=== PATIENT | male | born 1990 | race Caucasian/White ===

== ENCOUNTER → 2020-07-20 | Outpatient (CLI) | payer OTHER ==
[2020-07-20 10:51] LABS: HEMATOCRIT 41.7 % (42.0-52.0); HEMOGLOBIN 13.6 g/dl (13.5-17.5); MEAN CORPUSCULAR HEMOGLOBIN 30.8 pg (27.0-33.0); MEAN CORPUSCULAR HGB CONC 32.6 g/dl (32.0-36.5); MEAN CORPUSCULAR VOLUME 94.6 fl (80.0-96.0); PLATELET COUNT, AUTOMATED 347 10^3/uL (150-450); RED BLOOD COUNT 4.41 10^6/uL (4.30-6.10); WHITE BLOOD COUNT 5.1 10^3/uL (4.0-10.0)
[2020-07-20 11:19] LABS: ALBUMIN 4.2 GM/DL (3.2-5.2); ALT/SGPT 41 U/L (12-78); BILIRUBIN,TOTAL 0.4 MG/DL (0.2-1.0); BLOOD UREA NITROGEN 27 MG/DL (7-18); CALCIUM LEVEL 9.6 MG/DL (8.5-10.1); CARBON DIOXIDE LEVEL 31 MEQ/L (21-32); CHLORIDE LEVEL 99 MEQ/L (98-107); CREATININE FOR GFR 1.23 MG/DL (0.70-1.30); GLOMERULAR FILTRATION RATE > 60.0 (>60); GLUCOSE, FASTING 96 MG/DL (70-100); SODIUM LEVEL 136 MEQ/L (136-145); TOTAL PROTEIN 7.4 GM/DL (6.4-8.2)
[2020-07-20 11:34] LABS: HEPATITIS B SURFACE ANTIGEN NEGATIVE (NEGATIVE)
[2020-07-20 12:03] LABS: HIV 1&2 SCREEN CENTAUR NEGATIVE (NEGATIVE)
[2020-07-20 12:07] LABS: HEPATITIS C VIRUS ABY INDEX > 11.0 INDEX (<0.8)
[2020-07-20 14:32] LABS: CHLAMYDIA DNA AMPLIFICATION NEGATIVE (NEGATIVE); GC DNA AMPLIFICATION NEGATIVE (NEGATIVE)
--- NOTE | 2020-07-23 00:07 | ECGEPIP ---
[facility] Test Date: 2020-07-20 Pat Name: REYNA GOLDSTEIN Department: Room: - Gender: Male [employer]ating [employer]ic: rf : 1990 Requested By: Nimesh Burleson Order Number: [id number] Reading MD: Mart Egan Measurements Intervals [place] Rate: 94 P: 67 WV: 152 QRS: 63 QRSD: 74 T: 42 QT: 338 QTc: 422 Interpretive Statements Normal sinus rhythm No prior tracing in the system Electronically Signed on 07-23-2020 0:07:41 EST by Mart Egan
== END ==
LOC: M LAB 09:39
PROVIDERS: ATTEND Family Medicine
DX: F11.20 Opioid dependence, uncomplicated (principal)

== ENCOUNTER → 2020-07-20 | Outpatient (CLI) | payer OTHER ==
[2020-07-20 11:16] LABS: APPEARANCE, URINE CLEAR (CLEAR); BACTERIA, URINE AUTO NEGATIVE (NEGATIVE); BILIRUBIN, URINE AUTO NEGATIVE (NEGATIVE); BLOOD, URINE BLOOD NEGATIVE (NEGATIVE); COLOR, URINE STRAW (YELLOW); GLUCOSE, URINE (UA) AUTO NEGATIVE (NEGATIVE); KETONE, URINE AUTO NEGATIVE (NEGATIVE); LEUKOCYTE ESTERASE, URINE AUTO NEGATIVE (NEGATIVE); MUCUS, URINE SMALL (NEGATIVE); NITRITE, URINE AUTO NEGATIVE (NEGATIVE); PROTEIN, URINE AUTO NEGATIVE (NEGATIVE); RBC, URINE AUTO 0 /HPF (0-3); SPECIFIC GRAVITY URINE AUTO 1.006 (1.002-1.035); SQUAMOUS EPITHELIAL CELL UR AU 0 /HPF (0-6); UROBILINOGEN, URINE AUTO 0.2 mg/dL (0.0-2.0); WBC, URINE AUTO 1 /HPF (0-3)
[2020-07-20 11:21] LABS: BASO % 0.4 % (0.0-1.0); EOS # 0.3 10^3/uL (0.0-0.5); EOS % 6.7 % (0.0-3.0); HEMATOCRIT 42.5 % (42.0-52.0); HEMOGLOBIN 13.9 g/dl (13.5-17.5); LYMPH # 1.7 10^3/uL (1.5-5.0); LYMPH % 33.9 % (24.0-44.0); MEAN CORPUSCULAR HEMOGLOBIN 30.9 pg (27.0-33.0); MEAN CORPUSCULAR HGB CONC 32.7 g/dl (32.0-36.5); MEAN CORPUSCULAR VOLUME 94.4 fl (80.0-96.0); MONO # 0.3 10^3/uL (0.0-0.8); MONO % 6.1 % (2.0-8.0); NEUTROPHILS # 2.6 10^3/uL (1.5-8.5); NEUTROPHILS % 52.7 % (36.0-66.0); PLATELET COUNT, AUTOMATED 356 10^3/uL (150-450); WHITE BLOOD COUNT 4.9 10^3/uL (4.0-10.0)
[2020-07-20 11:40] LABS: ALBUMIN 4.2 GM/DL (3.2-5.2); ALT/SGPT 42 U/L (12-78); BILIRUBIN,TOTAL 0.3 MG/DL (0.2-1.0); BLOOD UREA NITROGEN 28 MG/DL (7-18); CALCIUM LEVEL 9.4 MG/DL (8.5-10.1); CARBON DIOXIDE LEVEL 32 MEQ/L (21-32); CHLORIDE LEVEL 99 MEQ/L (98-107); GLOMERULAR FILTRATION RATE > 60.0 (>60); GLUCOSE, FASTING 94 MG/DL (70-100); SODIUM LEVEL 135 MEQ/L (136-145); TOTAL PROTEIN 7.5 GM/DL (6.4-8.2)
[2020-07-20 11:49] LABS: HEPATITIS B SURFACE ANTIBODY POSITIVE (POSITIVE)
[2020-07-20 11:59] LABS: HEPATITIS B SURFACE ANTIGEN NEGATIVE (NEGATIVE)
[2020-07-20 12:27] LABS: HEPATITIS B CORE ANTIBODY IGM NEGATIVE (NEGATIVE)
[2020-07-20 12:29] LABS: HEPATITIS A ANTIBODY IGM NEGATIVE (NEGATIVE)
[2020-07-20 12:56] LABS: HEPATITIS C VIRUS ABY INDEX > 11.0 INDEX (<0.8)
== END ==
LOC: M LAB 09:48
PROVIDERS: ATTEND Physician Assistant Medical
DX: Z02.2 Encounter for examination for admission to residential institution (principal)

== ENCOUNTER → 2020-12-24 | Outpatient (CLI) | payer OTHER ==
--- NOTE | 2020-12-24 15:23 | REP ---
INDICATION: Palpable lump COMPARISON: None TECHNIQUE: Ultrasonography of the retroareolar region of both right and left breast were obtained. Left breast was performed for comparison. FINDINGS: Hypoechoic tissue is seen in the retroareolar region of both right and left breast. Since the right breast was ordered more images were obtained. IMPRESSION: Likely bilateral gynecomastia right greater than left, however, mammography is recommended bilaterally. <Electronically signed by Austin Guerrero > 12/24/20 [id number]
== END ==
LOC: M RAD 11:20
PROVIDERS: ATTEND Surgery
DX: N62 Hypertrophy of breast (principal)

== ENCOUNTER 2021-03-24 06:43 | Inpatient (IN) | payer OTHER ==
[~2021-03-24] VITALS: Ht 182.9 cm; Wt 77.0 kg
--- OUTSIDE RECORDS SUMMARY | 2021-03-24 06:47 | CCD | Continuity of Care Document ---
Author Author Jj NUGENT M.D. Organization Unknown Address [address] [place] [address] Phone [phone] Problems Description No Information Available Social History Type Date Description Comments Sex Unknown Allergies, Adverse Reactions, Alerts Description No Known Drug Allergies Medications Active Medications SIG Qnty Indications Ordering Provide r Date Bupropion Hydrochloride ER (XL) 450mg Tablets ER 24HR 1 by mouth every day 30tabs Diego Nugent M.D. 10/18/2020 Mirtazapine 15mg Tablets 1 tab by mouth every night 30tabs Diego Nugent M.D. 10/18/2020 History Medications No Active Medications Unknown - 10/18/2020 Immunizations Description No Information Available Vital Signs Date Vital Result Comment 10/15/2020 9:02am BP Systolic 123 mmHg BP Diastolic 89 mmHg Heart Rate 98 /min Respiratory Rate 18 /min Body Temperature 97.6 F Weight 153.00 lb 03/25/2020 8:47am BP Systolic 127 mmHg BP Diastolic 70 mmHg Heart Rate 101 /min Respiratory Rate 18 /min Body Temperature 97.6 F Weight 138.00 lb Results Description No Information Available Procedures Description No Information Available Medical Devices Description No Information Available Encounters Description No Information Available Assessments Description No Information Available Plan of Treatment No Information Available Functional Status Description No Information Available Mental Status Description No Information Available Referrals Description No Information Available
--- OUTSIDE RECORDS SUMMARY | 2021-03-24 06:47 | CCD ---
Author Author [facility] Organization [facility] Address Unknown Phone Unavailable Care Team Providers Care Resident Manager Name Role Phone Pranav VILLALBA MD Unavailable Unavailable MARAVEGIAS, Pranav JENSEN MD Unavailable Unavailable MARAVEGIAS, Pranav JENSEN MD Unavailable Unavailable MARAVEGIAArlette, Pranav JENSEN MD Unavailable Unavailable MARAVEGIAS, Pranav JENSEN MD Unavailable Unavailable MARAVEGIAS, Pranav JENSEN MD Unavailable Unavailable MARAVEGIAS, Pranav JENSEN MD Unavailable Unavailable MARAVEGIAPranav Chong MD Unavailable Unavailable MARAVEGIAPranav Chong MD Unavailable Unavailable MARAVEGIASPranav MD Unavailable Unavailable MARAVEGIASPranav MD Unavailable Unavailable MARAVEGIASPranav MD Unavailable Unavailable MARAVEGIAPranav Chong MD Unavailable Unavailable MARAVEGIASPranav MD Unavailable Unavailable Shantal Pyle Unavailable EJANIE IV, L SVETLANA FOIL SPINNER Unavailable Unavailable JEANIE IV, L SVETLANA FOIL SPINNER Unavailable Unavailable JEANIE IV, L SVETLANA FOIL SPINNER Unavailable Unavailable JEANIE IV, L SVETLANA FOIL SPINNER Unavailable Unavailable JEANIE IV, L SVETLANA FOIL SPINNER Unavailable Unavailable JEANIE IV, L SVETLANA FOIL SPINNER Unavailable Unavailable JEANIE IV, L SVETLANA FOIL SPINNER Unavailable Unavailable JEANIE IV, L SVETLANA FOIL SPINNER Unavailable Unavailable JEANIE IV, L SVETLANA FOIL SPINNER Unavailable Unavailable JEANIE IV, L SVETLANA FOIL SPINNER Unavailable Unavailable JEANIE IV, L SVETLANA FOIL SPINNER Unavailable Unavailable JEANIE IV, L SVETLANA FOIL SPINNER Unavailable Unavailable JEANIE IV, L SVETLANA FOIL SPINNER Unavailable Unavailable JEANIE IV, L SVETLANA FOIL SPINNER Unavailable Unavailable JEANIE IV, L SVETLANA FOIL SPINNER Unavailable Unavailable JEANIE IV, L SVETLANA FOIL SPINNER Unavailable Unavailable JEANIE IV, L SVETLANA FOIL SPINNER Unavailable Unavailable JEAINE IV, L SVETLANA FOIL SPINNER Unavailable Unavailable JEANIE IV, L SVETLANA FOIL SPINNER Unavailable Unavailable JEANIE IV, L SVETLANA FOIL SPINNER Unavailable Unavailable JEANIE IV, L SVETLANA FOIL SPINNER Unavailable Unavailable JEANIE IV, L SVETLANA FOIL SPINNER Unavailable Unavailable JEANIE IV, L SVETLANA FOIL SPINNER Unavailable Unavailable JEANIE IV, L SVETLANA FOIL SPINNER Unavailable Unavailable JEANIE IV, L SVETLANA FOIL SPINNER Unavailable Unavailable JEANIE IV, L SVETLANA FOIL SPINNER Unavailable Unavailable JEANIE IV, L SVETLANA FOIL SPINNER Unavailable Unavailable JEANIE IV, L SVETLANA FOIL SPINNER Unavailable Unavailable JEANIE IV, L SVETLANA FOIL SPINNER Unavailable Unavailable JEANIE IV, L SVETLANA FOIL SPINNER Unavailable Unavailable JEANIE IV, L SVETLANA FOIL SPINNER Unavailable Unavailable JEANIE IV, L SVETLANA FOIL SPINNER Unavailable Unavailable JEANIE IV, L SVETLANA FOIL SPINNER Unavailable Unavailable JEANIE IV, L SVETLANA FOIL SPINNER Unavailable Unavailable JEANIE IV, L SVETLANA FOIL SPINNER Unavailable Unavailable JEANIE IV, L SVETLANA FOIL SPINNER Unavailable Unavailable JEANIE IV, L SVETLANA FOIL SPINNER Unavailable Unavailable JEANIE IV, L SVETLANA FOIL SPINNER Unavailable Unavailable Luisa GONZALEZ M.D. Unavailable Unavailable Luisa GONZALEZ.Arelis Unavailable Unavailable TONTARSKI, G FRANCO PA Unavailable Unavailable TONTARSKI, G FRANCO PA Unavailable Unavailable TONTARSKI, G FRANCO PA Unavailable Unavailable TONTARSKI, G FRANCO PA Unavailable Unavailable TONTARSKI, G FRANCO PA Unavailable Unavailable TONTARSKI, G FRANCO PA Unavailable Unavailable TONTARSKI, G FRANCO PA Unavailable Unavailable TONTARSKI, G FRANCO PA Unavailable Unavailable TONTARSKI, G FRANCO PA Unavailable Unavailable TONTARSKI, G FRANCO PA Unavailable Unavailable TONTARSKI, G FRANCO PA Unavailable Unavailable TONTARSKI, G FRANCO PA Unavailable Unavailable TONTARSKI, G FRANCO PA Unavailable Unavailable TONTARSKI, G FRANCO PA Unavailable Unavailable TONTARSKI, G FRANCO PA Unavailable Unavailable TONTARSKI, G FRANCO PA Unavailable Unavailable TONTARSKI, G FRANCO PA Unavailable Unavailable TONTARSKI, G FRANCO PA Unavailable Unavailable TONTARSKI, G FRANCO PA Unavailable Unavailable TONTARSKI, G FRANCO PA Unavailable Unavailable TONTARSKI, G FRANCO PA Unavailable Unavailable TONTARSKI, G FRANCO PA Unavailable Unavailable TONTARSKI, G FRANCO PA Unavailable Unavailable TONTARSKI, G FRANCO PA Unavailable Unavailable TONTARSKI, G FRANCO PA Unavailable Unavailable TONTARSKI, G FRANCO PA Unavailable Unavailable TONTARSKI, G FRANCO PA Unavailable Unavailable TONTARSKI, G FRANCO PA Unavailable Unavailable TONTARSKI, G FRANCO PA Unavailable Unavailable TONTARSKI, G FRANCO PA Unavailable Unavailable TONTARSKI, G FRANCO PA Unavailable Unavailable TONTARSKI, G FRANCO PA Unavailable Unavailable TONTARSKI, G FRANCO PA Unavailable Unavailable TONTARSKI, G FRANCO PA Unavailable Unavailable TONTARSKI, G FRANCO PA Unavailable Unavailable TONTARSKI, G FRANCO PA Unavailable Unavailable TONTARSKI, G FRANCO PA Unavailable Unavailable TONTARSKI, G FRANCO PA Unavailable Unavailable TONTARSKI, G FRANCO PA Unavailable Unavailable TONTARSKI, G FRANCO PA Unavailable Unavailable TONTARSKI, G FRANCO PA Unavailable Unavailable TONTARSKI, G FRANCO PA Unavailable Unavailable TONTARSKI, G FRANCO PA Unavailable Unavailable TONTARSKI, G FRANCO PA Unavailable Unavailable TONTARSKI, G FRANCO PA Unavailable Unavailable TONTARSKI, G FRANCO PA Unavailable Unavailable TONTARSKI, G FRANCO PA Unavailable Unavailable Stanford Chau SERVICE DEPARTMENT MANAGER Unavailable Unavailable Stanford Chau SERVICE DEPARTMENT MANAGER Unavailable Unavailable Re-disclosure Warning The records that you are about to access may contain information from federally-assisted alcohol or drug abuse programs. If such information is present, then the following federally mandated warning applies: This information has been disclosed to you from records protected by federal confidentiality rules (42 CFR part 2). The federal rules prohibit you from making any further disclosure of this information unless further disclosure is expressly permitted by the written consent of the person to whom it pertains or as otherwise permitted by 42 CFR part 2. A general authorization for the release of medical or other information is NOT sufficient for this purpose. The Federal rules restrict any use of the information to criminally investigate or prosecute any alcohol or drug abuse patient.The records that you are about to access may contain highly sensitive health information, the redisclosure of which is protected by Article 27-F of the [facility] Public Health law. If you continue you may have access to information: Regarding HIV / AIDS; Provided by facilities licensed or operated by the [facility] Office of Mental Health; or Provided by the [facility] Office for People With Developmental Disabilities. If such information is present, then the following [facility] mandated warning applies: This information has been disclosed to you from confidential records which are protected by state law. State law prohibits you from making any further disclosure of this information without the specific written consent of the person to whom it pertains, or as otherwise permitted by law. Any unauthorized further disclosure in violation of state law may result in a fine or intermediate sentence or both. A general authorization for the release of medical or other information is NOT sufficient authorization for further disc losure. Encounters Encounter Providers Location Date Indications Data Source(s ) Attender: Shantalpenelope Pyle 12/08/2020 12:00:00 AM E DT [facility] ([facility]) Extended Individual Psychotherapy - 45 min Attender: Valenteyen Pyle [facility] 12/07/2020 09:45:00 AM EDT - 12/07/2020 09:45:00 AM EDT [facility] ([facility]) [facility] 02:00:00 PM EST [facility] ([facility]) Emergency Attender: ERI GONZALEZ M.D.Attender: ERI CARVALHO M.D. ER-ER 06/19/2020 05:49:00 PM EST - 06/19/2020 07:01:00 PM [facility] Patient discharged. Outpatient Attender: Татьяна Chau [facility] 06/2019 09:00:00 AM EDT - 01/28/2020 09:01:00 AM EDT [facility] Patient discharged. Outpatient Attender: SVETLANA WARE IV ED-[facility] 2019 02:00:00 PM EDT - 01/26/2020 02:01:00 PM EDT [facility] Patient discharged. Emergency Attender: CAMILA VILLALBA MD ED-ED 0 01/26/2020 01:20:00 PM EDT - 01/26/2020 01:40:00 PM EDT WITHDRAWING FROM DRUGS [facility] WITHDRAWING FROM DRUGS Patient discharged. Medications Medication Brand Name Start Date Product Form Dose Route Admi nistrative Instructions Pharmacy Instructions Status Indications Reaction Description Data Source(s) No Active Medications 10/18/2020 12:00:00 AM EDT completed [facility] ([facility]) Mirtazapine 15 MG Oral Tablet Mirtazapine 10/18/2020 12:00:00 AM EDT ORAL active [facility] ([facility]) 24 HR Bupropion Hydrochloride 450 MG Extended Release Oral Tablet Bupropion Hydrochloride ER (XL) 10/18/2020 12:00:00 AM EDT ORAL a ctive [facility] ([facility]) Clindamycin 300 MG Oral Capsule Clindamycin HCL 05/25/2020 12:00:00 A M EST ORAL completed [facility] ([facility]) Ibuprofen 200 MG Oral Capsule Ibuprofen 05/17/2020 12:00:00 AM EST completed [facility] ([facility]) No Active Medications 04/15/2020 12:00:00 AM EST completed [facility] ([facility]) Cephalexin 500 MG Oral Capsule [Keflex] Keflex 03/30/2020 12:00:0 0 AM EST ORAL completed [facility] ([facility]) Mupirocin 0.02 MG/MG Topical Ointment Mupirocin 03/30/2020 12:00:00 AM EST completed [facility] ([facility]) 12-3 mg 02/02/2020 12:00:00 AM EDT film [address] PL[address] ONE FILM UNDER THE TONGUE EVERY DAY MAXIMUM DAILY DOSE = 1 PLACE ONE FILM UNDER THE TONGUE EVERY DA Y MAXIMUM DAILY DOSE = 1 SOLD: 02/03/2020 [facility] 12-3 mg 01/26/2020 12:00:00 AM EDT film 7 PLACE ONE FILM UNDER THE TONGUE EVERY DAY MAXIMUM DAILY DOSE = 1 PLACE ONE FILM UNDER THE TONGUE EVERY DA Y MAXIMUM DAILY DOSE = 1 SOLD: 01/26/2020 [facility] Insurance Providers Payer name Policy type / Coverage type Policy ID Covered alliance party ID Covered alliance party's relationship to aguilar Policy Aguilar Plan Information [employer] MEDICAID [id number] S [id number] LAVERN I [id number] Self [id number] LAVERN [id number] SP [id number] [place] MEDICAID [id number] S 7 [id number] LAVERN 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 F17.210 Nicotine dependence, cigarettes, uncompl icated NICOTINE DEPENDENCE, CIGARETTES, UNCOMPLICATED Diagnosis 01/28/2020 09:00:00 AM EDT [facility] F11.20 Opioid dependence, uncomplicated OPIOID DEPENDEN CE, UNCOMPLICATED Diagnosis 01/28/2020 09:00:00 AM EDT [facility] F11.23 Opioid dependence with withdrawal OPIOID DEPENDE NCE WITH WITHDRAWAL Diagnosis 01/26/2020 01:20:00 PM EDT [facility] F11.20 Opioid dependence, uncomplicated Opioid Use Disorder, Severe Condition 12/08/2020 12:00:00 AM EDT [facility] ([facility]) F31.9 Bipolar disorder, unspecified Unspecified [place] r and Related Disorder Condition 12/08/2020 12:00:00 AM EDT [facility] ([facility]) Surgeries/Procedures Procedure Description Date Indications Data Source(s) Extended Individual Psychotherapy - 45 min 12/08/2020 12:00:00 AM EDT - 12/08/2020 12:00:00 AM EDT [facility] ([facility]) Extended Individual Psychotherapy - 45 min 12:00:00 AM EDT [facility] ([facility]) EMERGENCY DEPARTMENT VISIT LOW/MODER SEVERITY EMERGENCY DEPT VISIT 01/26/2020 12:00:00 AM EDT [facility] Results ID Date Data Source [id number] 07/20/2020 10:17:00 AM EST [facility] ([facility]) Name Value Range Interpretation Code Description Data Brielle rce(s) Supporting Document(s) Laboratory test finding (navigational concept) 0.09 0 .00-0.21 Normal (applies to non-numeric results) [facility] ([facility]) Laboratory test finding (navigational concept) Laboratory test r esult Normal (applies to non-numeric results) [facility] ([facility]) F0 - No fibrosis Laboratory test finding (navigational concept) 0.16 0 .00-0.17 Normal (applies to non-numeric results) [facility] ([facility]) Laboratory test finding (navigational concept) Laboratory test r esult Normal (applies to non-numeric results) [facility] ([facility]) Laboratory test finding (navigational concept) 77 mg/dL 1 7-317 Normal (applies to non-numeric results) [facility] ([facility]) Laboratory test finding (navigational concept) 201 mg/dL 1 10-276 Normal (applies to non-numeric results) [facility] ([facility]) Laboratory test finding (navigational concept) 124 mg/dL 1 01-178 Normal (applies to non-numeric results) [facility] ([facility]) Laboratory test finding (navigational concept) 12 IU/L 0 -65 Normal (applies to non-numeric results) [facility] ([facility]) Laboratory test finding (navigational concept) 0.2 mg/dL 0 .0-1.2 Normal (applies to non-numeric results) [facility] ([facility]) Laboratory test finding (navigational concept) 38 IU/L 0 -55 Normal (applies to non-numeric results) [facility] ([facility] MD) Laboratory test finding (navigational concept) Laboratory test r esult Normal (applies to non-numeric results) [facility] ([facility] MD) . Quantitative results of 6 biochemical tests are analyzed using a computational algorithm to provide a quantitative surrogate marker (0.0-1.0) for liver fibrosis (METAVIR F0- F4) and for necroinflammatory activity (METAVIR A0-A3). Laboratory test finding (navigational concept) Laboratory test r esult Normal (applies to non-numeric results) [facility] (Tai Overton MD) <content>.</content>
<content><0.21 = Stage F0 - No fibrosis</content>
<content>0.21 - 0.27 = Stage F0 - F1</content>
<content>0.27 - 0.31 = Stage F1 - Portal fibrosis</content>
<content>0.31 - 0.48 = Stage F1 - F2</content>
<content>0.48 - 0.58 = Stage F2 - Bridging fibrosis with few septa</content>
<content>0.58 - 0.72 = Stage F3 - Bridging fibrosis with many septa</content>
<content>0.72 - 0.74 = Stage F3 - F4</content>
<content>>0.74 = Stage F4 - Cirrhosis</content>
<content></content> Laboratory test finding (navigational concept) Laboratory test r esult Normal (applies to non-numeric results) [facility] ([facility] MD) <content>The negative predictive value o f a Fibrotest score <0.31</content>
<content>(absence of clinically significant fibrosis) was 85% when</content>
<content>compared to liver biopsy in 1,270 HCV infected patients</content>
<content>with a 38% prevalence of significant liver fibrosis (F2, 3</content>
<content>or 4). The positive predictive value of a Fibro-test score</content>
<content>>0.48 (F2, 3, 4) was 61% in that same patient cohort. HCV</content>
<content>FibroSURE is not recommended in patients with Gilbert</content>
<content>Disease, acute hemolysis (e.g. HCV ribavirin therapy</content>
<content>mediated hemolysis) acute hepa-titis of the liver, extra-</content>
<content>hepatic cholestasis, transplant patients, and/or renal</content>
<content>insufficiency patients. Any of these clinical situations</content>
<content>may lead to inaccurate quantitative predictions of</content>
<content>fibrosis and necroinflammatory activity in the liver.</content>
<content></content> Laboratory test finding (navigational concept) Laboratory test r esult Normal (applies to non-numeric results) [facility] ([facility] MD) <content>.</content>
<content><0.17 = Grade A0 - No Activity</content>
<content>0.17 - 0.29 = Grade A0 - A1</content>
<content>0.29 - 0.36 = Grade A1 - Minimal activity</content>
<content>0.36 - 0.52 = Grade A1 - A2</content>
<content>0.52 - 0.60 = Grade A2 - Moderate activity</content>
<content>0.60 - 0.62 = Grade A2 - A3</content>
<content>>0.62 = Grade A3 - Severe activity</content>
<content></content> Laboratory test finding (navigational concept) Laboratory test r esult Normal (applies to non-numeric results) [facility] (Tai Overton MD) . This test was developed and its performance characteristics determined by [facility]. It has not been cleared or approved by the Food and Drug Administration. The FDA has determined that such clearance or approval is not necessary. . For questions regarding this report please contact customer service at . ID Date Data Source [id number] 07/20/2020 10:17:00 AM EST [facility] ([facility]) Name Value Range Interpretation Code Description Data Brielle rce(s) Supporting Document(s) Hepatitis A virus IgG Ab [Units/volume] in Serum Laboratory test result Normal (applies to non-numeric results) [facility] (Tai Overton MD ) Performed at: [facility] [id number] [place] Tutor: Syl Smith MD, Phone: [phone] Performed at: [address] [id number] [place] Tutor: Kerri Jean MD, Phone: [phone] ID Date Data Source [id number] 07/20/2020 10:17:00 AM EST [facility] ([facility]) Name Value Range Interpretation Code Description Data Brielle rce(s) Supporting Document(s) Laboratory test finding (navigational concept) 3.114 Normal (applies to non- numeric results) [facility] (Tai Overton MD) Result Units: log10 IU/mL Laboratory test finding (navigational concept) 1300 IU/ml Normal (applies to non-numeric results) [facility] (Tai Overton MD) Laboratory test finding (navigational concept) Laboratory test r esult Normal (applies to non-numeric results) [facility] (Tai Overton MD) . The quantitative range of this assay is 15 IU/mL to 100 million IU/mL. ID Date Data Source [id number] 07/20/2020 10:17:00 AM EST [facility] ([facility] Overton MD) Name Value Range Interpretation Code Description Data Brielle rce(s) Supporting Document(s) Laboratory test finding (navigational concept) Laboratory test r esult Normal (applies to non-numeric results) [facility] (Tai Overton MD) Although this sample had sufficient HCV RNA as determined by quantitative methods, we were unable to determine the genotype on repeated attempts. Laboratory test finding (navigational concept) Laboratory test r esult Normal (applies to non-numeric results) [facility] (Tai Overton MD) . This test was developed and its performance characteristics determined by [facility]. It has not been cleared or approved by the U.S. Food and Drug Administration. . The FDA has determined that such clearance or approval is not necessary. This test is used for clinical purposes. It should not be regarded as investigational or for research. ID Date Data Source [id number] 07/20/2020 10:17:00 AM EST [facility] ([facility] Overton MD) Name Value Range Interpretation Code Description Data Brielle rce(s) Supporting Document(s) Hepatitis B virus surface Ab [Presence] in Serum by Im [facility] Laboratory test result Normal (applies to non-numeric results) M [facility] (Tai Overton MD) ID Date Data Source [id number] 07/20/2020 10:17:00 AM EST [facility] ([facility] Overton MD) Name Value Range Interpretation Code Description Data Brielle rce(s) Supporting Document(s) Laboratory test finding (navigational concept) Laboratory test r esult Above high normal [facility] (Tai Overton MD) <content>This screening test for Hepatit is C Virus was above the 1.0</content>
<content>cutoff index value and will be sent to reference lab</content>
<content>[facility], [address] [place],</content>
<content>[place] [id number] for Hep C RNA GEENA testing to confirm or exclude</content>
<content>active Hepatitis C Virus infection. Screening test Positive</content>
<content>samples with high index values (>11.0) usually (95%) confirm</content>
<content>Positive, but <5 of every 100 samples with this result might</content>
<content>be a false positive and Hep C RNA GEENA testing will aid in</content>
<content>patient management.</content>
<content></content> Laboratory test finding (navigational concept) Laboratory test r esult Normal (applies to non-numeric results) [facility] (Tai Overton MD) Laboratory test finding (navigational concept) Laboratory test r esult Normal (applies to non-numeric results) [facility] (Tai Overton MD) Laboratory test finding (navigational concept) Laboratory test r esult Normal (applies to non-numeric results) [facility] (Tai Overton MD) ID Date Data Source [id number] 07/20/2020 10:17:00 AM EST [facility] ([facility]) Name Value Range Interpretation Code Description Data Brielle rce(s) Supporting Document(s) Laboratory test finding (navigational concept) 94 mg/dL 7 0-100 Normal (applies to non-numeric results) [facility] (Tai Overton MD) Laboratory test finding (navigational concept) 28 mg/dL 7-18 Above high normal [facility] (Tai Overton MD) Laboratory test finding (navigational concept) 1.20 mg/dL 0 .70-1.30 Normal (applies to non-numeric results) [facility] (Tai Overton MD) Laboratory test finding (navigational concept) Laboratory test r esult Normal (applies to non-numeric results) [facility] (Tai Overton MD) <content>Units are mL/min/1.73 m2</content>
<content></content>
<content>Chronic Kidney Disease Staging per NKF:</content>
<content></content>
<content>Stage I & II GFR >=60 Normal to Mildly Decreased</content>
<content>Stage III GFR 30- 59 Moderately Decreased</content>
<content>Stage IV GFR 15-29 Severely Decreased</content>
<content>Stage V GFR <15 Very Little GFR Left</content>
<content>ESRD GFR <15 on MILKING SYSTEM INSTALLER</content>
<content></content> Laboratory test finding (navigational concept) 99 meq/L 9 8-107 Normal (applies to non-numeric results) [facility] (Tai Overton MD) Laboratory test finding (navigational concept) 135 meq/L 1 36-145 Below low normal [facility] (Tai Overton MD) Laboratory test finding (navigational concept) 4.0 meq/L 3 .5-5.1 Normal (applies to non-numeric results) [facility] (Tai Overton MD) Laboratory test finding (navigational concept) 4 meq/L 8-16 Below low normal [facility] (Tai Overton MD) Laboratory test finding (navigational concept) 32 meq/L 2 1-32 Normal (applies to non-numeric results) [facility] (Tai Overton MD) Laboratory test finding (navigational concept) 9.4 mg/dL 8 .5-10.1 Normal (applies to non-numeric results) [facility] (Tai Overton MD) Laboratory test finding (navigational concept) 79 U/L 4 5-117 Normal (applies to non-numeric results) [facility] (Tai Overton MD) Laboratory test finding (navigational concept) 42 U/L 1 2-78 Normal (applies to non-numeric results) [facility] (Tai Overton MD) Laboratory test finding (navigational concept) 20 U/L 7 -37 Normal (applies to non-numeric results) [facility] (Tai Overton MD) Laboratory test finding (navigational concept) 7.5 GM/DL 6 .4-8.2 Normal (applies to non-numeric results) [facility] (Tai Overton MD) Laboratory test finding (navigational concept) 0.3 mg/dL 0 .2-1.0 Normal (applies to non-numeric results) [facility] (Tai Overton MD) Laboratory test finding (navigational concept) 1.3 Normal (applies to non- numeric results) TALATENT (Tai Overton MD) Laboratory test finding (navigational concept) 4.2 GM/DL 3 .2-5.2 Normal (applies to non-numeric results) MATA (Tai Overton MD) ID Date Data Source [id number] 07/20/2020 10:17:00 AM EST MEDCARLOS (Tai Overton MD) Name Value Range Interpretation Code Description Data Brielle rce(s) Supporting Document(s) Laboratory test finding (navigational concept) Laboratory test r esult Normal (applies to non-numeric results) MEDENT (Tai Overton MD) Laboratory test finding (navigational concept) Laboratory test r esult Normal (applies to non-numeric results) MEDENT (Tai Overton MD) Laboratory test finding (navigational concept) Laboratory test r esult Normal (applies to non-numeric results) MEDENT (Tai Overton MD) Laboratory test finding (navigational concept) 5.0 units 5 .0-9.0 Normal (applies to non-numeric results) TALATENT (Tai Overton MD) Laboratory test finding (navigational concept) 1.006 1 .002-1.035 Normal (applies to non-numeric results) MEDENT (Tai Overton MD) Laboratory test finding (navigational concept) Laboratory test r esult Normal (applies to non-numeric results) MEDENT (Tai Overton MD) Laboratory test finding (navigational concept) Laboratory test r esult Normal (applies to non-numeric results) MEDENT (Tai Overton MD) Laboratory test finding (navigational concept) Laboratory test r esult Normal (applies to non-numeric results) TALATENT (Tai Overton MD) Laboratory test finding (navigational concept) 0.2 mg/dL 0 .0-2.0 Normal (applies to non-numeric results) MEDENT (Tai Overton MD) Laboratory test finding (navigational concept) Laboratory test r esult Normal (applies to non-numeric results) MEDENT (Tai Overton MD) Laboratory test finding (navigational concept) 1 /HPF 0 -3 Normal (applies to non-numeric results) TALATENT (Tai Overton MD) Laboratory test finding (navigational concept) Laboratory test r esult Normal (applies to non-numeric results) TALATENT (Tai Overton MD) Laboratory test finding (navigational concept) Laboratory test r esult Normal (applies to non-numeric results) MEDENT (Tai Overton MD) Laboratory test finding (navigational concept) 0 /HPF 0 -6 Normal (applies to non-numeric results) MEDENT (Tai Overton MD) Laboratory test finding (navigational concept) Laboratory test r esult Normal (applies to non-numeric results) MEDENT (Tai Overton MD) Laboratory test finding (navigational concept) 0 /HPF 0 -3 Normal (applies to non-numeric results) MEDENT (Tai Overton MD) Laboratory test finding (navigational concept) 0 /LPF 0 -1 Normal (applies to non-numeric results) MEDENT (Tai Overton MD) Laboratory test finding (navigational concept) Laboratory test r esult Normal (applies to non-numeric results) MEDCARLOS (Tai Overton MD) ID Date Data Source [id number] 07/20/2020 10:17:00 AM EST MEDCARLOS (Tai Overton MD) Name Value Range Interpretation Code Description Data Brielle rce(s) Supporting Document(s) Laboratory test finding (navigational concept) 4.9 10 4 .0-10.0 Normal (applies to non-numeric results) MEDENT (Tai Overton MD) Laboratory test finding (navigational concept) 13.9 g/dL 1 3.5-17.5 Normal (applies to non-numeric results) MEDENT (Tai Overton MD) Laboratory test finding (navigational concept) 4.50 10 4 .30-6.10 Normal (applies to non-numeric results) MEDENT (Tai Overton MD) Laboratory test finding (navigational concept) 42.5 % 4 2.0-52.0 Normal (applies to non-numeric results) MEDENT (Tai Overton MD) Laboratory test finding (navigational concept) 94.4 fl 8 0.0-96.0 Normal (applies to non-numeric results) TALATENT (Tai Overton MD) Laboratory test finding (navigational concept) 30.9 pg 2 7.0-33.0 Normal (applies to non-numeric results) TALATENT (Tai Overton MD) Laboratory test finding (navigational concept) 32.7 g/dL 3 2.0-36.5 Normal (applies to non-numeric results) MEDENT (Tai Oevrton MD) Laboratory test finding (navigational concept) 356 10 1 50-450 Normal (applies to non-numeric results) MEDENT (Tai Overton MD) Laboratory test finding (navigational concept) 12.7 % 1 1.5-14.5 Normal (applies to non-numeric results) MEDENT (Tai Overton MD) Laboratory test finding (navigational concept) 33.9 % 2 4.0-44.0 Normal (applies to non-numeric results) MEDENT (Tai Overton MD) Laboratory test finding (navigational concept) 52.7 % 3 6.0-66.0 Normal (applies to non-numeric results) MEDENT (Tai Overton MD) Laboratory test finding (navigational concept) 0.4 % 0 .0-1.0 Normal (applies to non-numeric results) MEDENT (Tai Overton MD) Laboratory test finding (navigational concept) 6.1 % 2 .0-8.0 Normal (applies to non-numeric results) MEDENT (Tai Overton MD) Laboratory test finding (navigational concept) 6.7 % 0.0-3.0 Above high normal MEDENT (Tai Overton MD) Laboratory test finding (navigational concept) 0.0 % 0 -0 Normal (applies to non- numeric results) MEDENT (Tai Overton MD) Laboratory test finding (navigational concept) 0.2 % 0 -3.0 Normal (applies to non-numeric results) MEDENT (Tai Overton MD) Laboratory test finding (navigational concept) 2.6 10 1 .5-8.5 Normal (applies to non-numeric results) MEDENT (Tai Overton MD) Laboratory test finding (navigational concept) 0.3 10 0 .0-0.5 Normal (applies to non-numeric results) MEDENT (Tai Overton MD) Laboratory test finding (navigational concept) 0.3 10 0 .0-0.8 Normal (applies to non-numeric results) MEDENT (Tai Overton MD) Laboratory test finding (navigational concept) 1.7 10 1 .5-5.0 Normal (applies to non-numeric results) MEDENT (Tai Overton MD) Laboratory test finding (navigational concept) 0.0 10 0 .0-0.2 Normal (applies to non-numeric results) MEDENT (Tai Overton MD) ID Date Data Source [id number] 06/23/2020 12:54:00 PM EST [facility] WBCS IN MODERATE NUMBERSNO ORGANISMS SEE N Name Value Range Interpretation Code Description Data Brielle rce(s) Supporting Document(s) [facility] WBCS IN MODERATE NUMBERSNO ORGANISMS SEE N ID Date Data Source [id number] 06/19/2020 07:01:00 PM EST [facility] Physician DocumentationClBria pandya CenterName: Reyna HoonAge: 30 yrsSex: MaleDOB: 1990MRN: [id number] Date: 06/19/2020Time: 17:49Account#: [id number] MD:ED Physician Reji Gonzalez Summary:06/19/20 18:26Discharge OrderedLocation: Home Self Care mkProblem: an ongoing problem mkSymptoms: have improved mkCondition: Stable mkDiagnosis- Cutaneous abscess of left upper limb mkFollowup: mk- With: Private Physician- When: [facility]- Reason: Recheck today's complaints, Continuance of careFollowup: mk- With: Emergency Department- When: As needed- Reason: Worsening of condition, Change in ConditionDischarge Instructions:- Discharge Summary Sheet mk- ABSCESS, I and D mkForms:- Medication Reconciliation mk- Medication Reconciliation Form - 2nd Copy mkPrescriptions:- Clindamycin HCl 300 mg Oral Capsule- take 1 capsule by ORAL route every 6 hours for 10 days; 40 mkcapsule; Refills: 0, Product Selection PermittedDisposition:05/2408:15 Attestation: I was available for consultation throughout this vkpatient's ED visit.HPI:05/2317:17 This 30 yrs old White Male presents to ER via Private Vehicle with mkcomplaints of Abscess.18:17 The patient presents with an abscess of the left antecubital area. mkDescription: raised, swollen, tense. Onset: The symptoms/epis odebegan/occurred 2 week(s) ago, and became worse today. Possiblecause(s): IVDA. Associated signs and symptoms: Pertinent positives:erythema, swelling, Pertinent negatives: discharge, drainage, foreignbody sensation, fever, headache, nausea, shortness of breath,vomiting. Modifying factors: the symptoms are alleviated by nothing,the symptoms are aggravated by squeezing the lesion and expressingthe contents, touching. Severity of symptoms: At their worst thesymptoms were moderate. The patient has experienced similar episodesin the past. The patient has been recently seen by a physician:.Patient is has been [facility] to [facility]. He hascompleted a course of Keflex and Bactrim but he area has increased insize. He has had previous I & D's for abscess in the past. .Historical:- Allergies: Keflex;- Home Meds:1. Culturelle 10 billion cell oral cap four times a day2. Seroquel 50 mg Oral tab 2 times per day3. Abilify 5 mg oral tab 1 tab once daily4. Lasix 40 mg Oral tab 1 tab once d aily5. spironolactone 50 mg Oral tab 1 tab once daily6. subutex 24 mg daily- PMHx: Anxiety; Opioid addiction; Hepatitis C;- Immunization history: Flu vaccine is not up to date.- Family history: Reviewed and not pertinent, No immediate familymembers are acutely ill.- Social history: Smoking status: Patient uses tobacco products,current every day smoker. ETOH status Denies use of ETOH.- Advance Directives:: None.- Hospitalizations: : No recent hospitalization is reported.ROS:18:22 Constitutional: Alert, orientated, conversing appropriately. Eyes: mkNegative for blurriness, tearing, itching, and acute vison loss. ENT:Negatve for injury, pain and discharge Neck: Negative for injury,pain, and swelling, Cardiovascular: Negative for chest pain,palpitations, JVD, edema, murmur Respiratory: Negative for shortnessof breath, cough, sputum, wheezing, pleuritic chest pain, andhemoptysis. Abdomen/GI: Negative for abdominal pain, nausea,vomiting, diarrhea, and constipation, Back: Negative for injury andpain, : Negative for injury, bleeding, discharge, and swelling.Neuro: Negative for headache, weakness, numbness, tingling, tremors,and seizure. MS/extremity: Positive for erythema, pain, swelling,warmth, of the left antecubital area, Negative for decreased range ofmotion, tingling. Skin: Positive for abscess, erythema, swelling,Negative for abrasions, avulsion, burn, cellulitis, diaphoresis,discoloration, ecchymosis, hematoma, jaundice, laceration(s),lesions, pallor, puncture, rash, ulceration.Exam:18:23 Constitutional: This is a well developed, well nourished patient who mkis awake, alert, and in no acute distress. Head/Face: Normocephalic,atraumatic. Eyes: Pupils equal round and reactive to light,extra-ocular motions intact. Lids and lashes normal. Conjunctivaand sclera are non-icteric and not injected. Cornea within normallimits. Periorbital areas with no swelling, redness, or edema. ENT:Nares patent. No nasal discharge, no septal abnormalities noted.Tympanic membranes are normal and external auditory canals are clear.Oropharynx with no redness, swelling, or masses, exudates, orevidence of obstruction, uvula midline. Mucous membranes moist.Neck: Trachea midline, no thyromegaly or masses palpated, and nocervical lymphadenopathy. Supple, full range of motion withoutnuchal rigidity, or vertebral point tenderness. No Meningismus.Chest/axilla: Normal chest wall appearance and motion. Nontenderwith no deformity. No lesions are appreciated. Cardiovascular:Regular rate and rhythm with a normal S1 adn S2. No gallops, murmurs,or rubs. Normal PMI, no JVD. No pulse deficits. Respiratory: Lungshave equal breath sounds bilaterally. No rales, rhonchi or wheezesnoted. No increased work of breathing, no retractions or nasalflaring. Abdomen/GI: Soft, non-tender, with normal bowel sounds. Nodistension or tympany. No guarding or rebound. No evidence oftenderness throughout. Back: No spinal tenderness. Nocostovertebral tenderness. Full range of motion.18:23 Skin: abscess, that is moderate sized, of the left antecubital area,with fluctuance, that is mild.Vital Signs:17:53 BP 122 / 80; Pulse 110; Resp 17; Temp 97.9(TE); Pulse Ox 96% on R/A; zsPain 0/10;18:49 ef118:49 DEFFERED kk6Btltknhyys:18:23 I & D: Incision and drainage was performed for an abscess of the left mkleft antecubital area Prepped with Betadine, Anesthetized with ml's2% Lidocaine with epinephrine. 3 ml's 2% Lidocaine with epinephrine.Incised with #10 blade. Drained moderate amount purulent fluid.Cultures obtained. Abscess cavity explored. the patient tolerated theprocedure well.MDM:17:57 Patient medically screened. mk18:24 Data reviewed: vital signs, nurses notes. mk01/2318:15 Order name: Culture mkDispensed Medications:18:32 CANCELLED (Physician Discretion): cefTRIAXone 1 grams IM once mk18:43 Drug: Clindamycin 300 mg [clindamycin HCl 300 mg capsule (1 caps)] [id number]: PO;18:52 Follow up: Response: Medication administered at discharge. qc8Lsbfzriptk:Dispatcher [employer] Saige Grullon FNP-C FNP-CmkShantie, Zachary, RN RN zsFishel, Erica, RN RN [id number] aiken MD MD vkCorrections: (The following items were deleted from the chart)18:15 17:50 Allergies: No known Allergies; zs ef118:32 18:14 cefTRIAXone 1 grams IM once ordered. [facility] Name Value Range Interpretation Code Description Data Brielle rce(s) Supporting Document(s) ID Date Data Source [id number] 06/19/2020 07:01:00 PM EST [facility]Cl[facility] Katy terName: Reyna HoonAge: 30 yrsSex: MaleDOB: 1990MRN: [id number] Date: 06/19/2020Time: 17:49Account#: [id number] MD:Diagnosis: Cutaneous abscess of left upper limbPresentation:05/2316:49 Presenting complaint: Patient states: Abscess to left arm that has zsbeen present for few months but worse over the last week. CoronavirusScreening: Have you traveled internationally or had contact withsomeone that has traveled and has been ill in the past 3 weeks? noHave you traveled to a location with widespread or ongoing COVID-19community spread or outside of [facility]? no Flu-like symptomsreported in the last 14 days: no. Have you had close contact withconfirmed or suspected COVID-19 case? no. Communicable DiseaseScreen: Negative for fever>/= 100 degrees Fahrenheit. Communicabledisease screen is negative. (-) rash or unusual skin lesion (-)travel/contact with traveler (-) respiratory symptoms.17:49 Acuity: Triage 3 zs17:49 Method Of Arrival: Private Vehicle zs17:50 Acuity Assignment: Triage 3 zsTriage Assessment:17:52 General: Appears in no apparent distress, Behavior is appropriate for zsage, cooperative. Sepsis Screening: (1)Signs/symptoms infectionSepsis is not suspected. Pain: Complains of pain in left antecubitalarea Pain currently is 6 out of 10 on a pain scale. Quality of painis described as aching. PSS-3 Now I'm going to ask you some questionsthat we ask everyone treated here, no matter what problem they arehere for. It is part of the hospital's policy and it helps us to makesure we are not missing anything important. Over the past 2 weeks,have you felt down, depressed, or hopeless? No. Over the past 2weeks, have had thoughts of killing yourself? No. In your lifetime,have you ever attempted to kill yourself? No. Derm: No deficitsnoted. Skin is intact, is healthy with good turgor. Neuro: Nodeficits noted. Respiratory: Airway is patent Respiratory effort iseven, unlabored, Respiratory pattern is regular.Historical:- Allergies: Keflex;- Home Meds:1. Culturelle 10 billion cell oral cap four times a day2. Seroquel 50 mg Oral tab 2 times per day3. Abilify 5 mg oral tab 1 tab once daily4. Lasix 40 mg Oral tab 1 tab once daily5. spironolactone 50 mg Oral tab 1 tab once daily6. subutex 24 mg daily- PMHx: Anxiety; Opioid addiction; Hepatitis C;- Immunization history: Flu vaccine is not up to date.- Family history: Reviewed and not pertinent, No immediate familymembers are acutely ill.- Social history: Smoking status: Patient uses tobacco products,current every day smoker. ETOH status Denies use of ETOH.- Advance Directives:: None.- Hospitalizations: : No recent hospitalization is reported.Screenin:11 Abuse screen: Denies threats or abuse. Denies injuries from another. [id number] screening: No deficits noted. Offer of HIV testing:patient was previously offered screening. Fall Risk None identified.Assessment:18:11 Pain: Complains of pain in left antecubital area. Derm: Abscess [id number] on left antecubital area is golf ball sized, is red, israised. General: Appears in no apparent distress, Behavior iscooperative. Neuro: Level of Consciousness is awake, alert.Respiratory: No deficits noted.Vital Signs:17:53 BP 122 / 80; Pulse 110; Resp 17; Temp 97.9(TE); Pulse Ox 96% on R/A; zsPain 0/10;18:49 ef118:49 DEFFERED ef1ED Course:17:49 Patient arrived in ED. zs17:50 Triage completed. zs17:56 An Shetty, BLANQUITA is Primary Nurse. ef117:57 Saige Camp FNP-C [facility]. mk17:57 Eri Gonzalez MD is Attending Physician. mk18:11 Patient has correct armband on for positive identification. Bed in ef1low position. Call light in reach. Verbal reassurance given. Pillowgiven.18:49 Assist provider with I & D: Performed by Saige VALLE. [id number] Medications:18:32 CANCELLED (Physician Discretion): cefTRIAXone 1 grams IM once mk18:43 Drug: Clindamycin 300 mg [clindamycin HCl 300 mg capsule (1 caps)] [id number]: PO;18:52 Follow up: Response: Medication administered at discharge. yx8Hmamngy:18:26 Discharge ordered by . mk18:49 Disposition: Discharged to home ambulatory. ef118:49 Condition: stable, Provider notified of abnormal vital signs.18:49 Discharge instructions given to patient, Instructed on dischargeinstructions, follow up and referral plans. Demonstratedunderstanding of instructions, medications, Prescriptions given X 1.18:49 Discharge Assessment: Patient verbalized understanding of dispositioninstructions. Patient has no functional deficits.19:01 Patient left the ED. [id number]:Saige Camp FNP-C FNP-CmkShantie, Zachary, RN RN zsFishel, Erica, RN RN [id number]: (The following items were deleted from the chart)18:15 17:50 Allergies: No known Allergies; zs ef1 Name Value Range Interpretation Code Description Data Brielle rce(s) Supporting Document(s) Procedure Social History Code Duration Value Status Description Data Source(s ) Smoking 12/08/2020 12:00:00 AM EDT Unknown if ever smoked comp leted Unknown if ever smoked [facility] ([facility]) Vital Signs ID Date Data Source UNK Name Value Range Interpretation Code Description Data Source(s) Systolic blood pressure 123 mm[Hg] 123 mm[Hg] M EDENT ([facility]) Respiratory rate 18 /min 18 /min MEDENT ( [facility]) Body weight 153.00 [lb_av] 153.00 [lb_av] MEDEN T ([facility]) Diastolic blood pressure 89 mm[Hg] 89 mm[Hg] MEDENT ([facility]) Heart rate 98 /min 98 /min MEDENT ([facility]) Body temperature 97.6 [degF] 97.6 [degF] MEDENT ([facility]) Body temperature 97.6 [degF] 97.6 [degF] MEDENT ([facility]) Systolic blood pressure 127 mm[Hg] 127 mm[Hg] M EDENT ([facility]) Diastolic blood pressure 70 mm[Hg] 70 mm[Hg] MEDENT ([facility]) Heart rate 101 /min 101 /min MEDENT ([facility]) Respiratory rate 18 /min 18 /min MEDENT ( [facility]) Body weight 138.00 [lb_av] 138.00 [lb_av] MEDEN T ([facility]) ID Date Data Source [id number] 01/28/2020 07:27:00 AM EDT [facility] spital Name Value Range Interpretation Code Description Data Source(s) Weight Measurement Method 8 8 [facility] [address] [facility] 7 7 [facility] Temperature 98.6 98.6 [facility] Respiratory Effort 1 1 [facility] Respiratory Rate 18 18 [facility] Pulse Assessment Method 4 4 G [facility] Pulse Rate 95 95 [facility] [address] [facility] 128/81 128/81 [facility] Weight Measurement Method 8 8 [facility] Weight 2400 2400 [facility] pital Temperature Source 7 7 [facility] Temperature 98.6 98.6 [facility] Respiratory Effort 1 1 [facility] Respiratory Rate 18 18 [facility] Pulse Assessment Method 4 4 G [facility] Pulse Rate 95 95 [facility] Height [facility] [address] [facility] Pressure 128/81 128/81 [facility]
[2021-03-24] MEDS ORDERED: NS 1,000 ML IV ONE ×2 (06:55→09:25)
--- OUTSIDE RECORDS SUMMARY | 2021-03-24 07:24 | CCD ---
Author Author [facility] Organization [facility] Address Unknown Phone Unavailable Care Team Providers Care Fuel Pilot Engineer Name Role Phone Pranav VILLALBA MD Unavailable [...] MARAVEGIASPranav MD Unavailable Unavailable Shantal Pyle Unavailable JEANIE IV, L SVETLANA 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 Unavailable Unavailable JEANIE IV, L SVETLANA 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 Unavailable Unavailable JEANIE IV, L SVETLANA 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 Unavailable Unavailable JEANIE IV, L SVETLANA 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 Unavailable Unavailable JEANIE IV, L SVETLANA 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 Unavailable Unavailable JEANIE IV, L SVETLANA 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 Unavailable Unavailable JEANIE IV, L SVETLANA [employer]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 Unavailable Unavailable JEANIE IV, L SVETLANA 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 Unavailable Unavailable JEANIE IV, L SVETLANA 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 Unavailable Unavailable JEANIE IV, L SVETLANA 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 Unavailable Unavailable JEANIE IV, L SVETLANA 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 Unavailable Unavailable JEANIE IV, L SVETLANA 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 Unavailable Unavailable JEANIE IV, L SVETLANA 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 Unavailable Unavailable JEANIE IV, L SVETLANA 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 Unavailable Unavailable JEANIE IV, L SVETLANA 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 Unavailable Unavailable JEANIE IV, L SVETLANA 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 Unavailable Unavailable JEANIE IV, L SVETLANA 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 Unavailable Unavailable JEANIE IV, L SVETLANA 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 Unavailable Unavailable JEANIE IV, L SVETLANA 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 Unavailable Unavailable JEANIE IV, L SVETLANA 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 Unavailable Unavailable JEANIE IV, L SVETLANA 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 Unavailable Unavailable JEANIE IV, L SVETLANA 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 Unavailable Unavailable JEANIE IV, L SVETLANA 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 Unavailable Unavailable JEANIE IV, L SVETLANA 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 Unavailable Unavailable JEANIE IV, L SVETLANA 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 Unavailable Unavailable JEANIE IV, L SVETLANA 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 Unavailable Unavailable JEANIE IV, L SVETLANA 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 Unavailable Unavailable JEANIE IV, L SVETLANA 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 Unavailable Unavailable JEANIE IV, L SVETLANA 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 Unavailable Unavailable JEANIE IV, L SVETLANA 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 Unavailable Unavailable JEANIE IV, L SVETLANA 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 Unavailable Unavailable JEANIE IV, L SVETLANA 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 Unavailable Unavailable JEANIE IV, L SVETLANA 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 Unavailable Unavailable JEANIE IV, L SVETLANA 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 Unavailable Unavailable JEANIE IV, L SVETLANA 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 Unavailable Unavailable JEANIE IV, L SVETLANA 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 Unavailable Unavailable JEANIE IV, L SV[employer]LANA 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 Unavailable Unavailable JEANIE IV, L [employer]LANA 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 Unavailable Unavailable Luisa GONZALEZ M.D. Unavailable Unavailable [...] G FRANCO PA Unavailable Unavailable Stanford Chau SUPERINTENDENT Unavailable Unavailable Stanford Chau SUPERINTENDENT Unavailable Unavailable Re-disclosure Warning The records that [...] is protected by Article 27-F of the [facility] Public Health law. If you continue you may have access to information: Regarding HIV / AIDS; Provided by facilities licensed or operated by the [facility] Office of Mental Health; or Provided by the [facility] Office for People With Developmental Disabilities. If such information is present, then the following [facility] mandated warning applies: This information has [...] law may result in a fine or long-term sentence or both. A general authorization for the release of medical or other information is NOT sufficient authorization for further disc losure. Encounters Encounter Providers Location Date Indications Data Source(s ) Attender: Shantalpenelope Pyle 12/08/2020 12:00:00 AM E DT [facility] ([facility]) Extended Individual Psychotherapy - 45 min Attender: Valenteyen Pyle [facility] 12/07/2020 09:45:00 AM EDT - 12/07/2020 09:45:00 AM EDT [facility] ([facility]) [facility] 02[facility]00:00 PM EST [facility] (Tai Overton MD) Emergency Attender: ERI GONZALEZ M.D.Attender: ERI CARVALHO M.D. ER-ER 06/19/2020 05:49:00 PM EST - 06/19/2020 07:01:00 PM [facility] Patient discharged. Outpatient Attender: Татьяна Chau [facility] 06/2019 09:00:00 AM EDT - 01/28/2020 09:01:00 AM EDT [facility] Patient discharged. Outpatient Attender: SVETLANA WARE IV ED-CHEREH 2019 02:00:00 PM EDT - 01/26/2020 02:01:00 PM EDT [facility] Patient discharged. Emergency Attender: CAMILA VILLALBA MD ED-ED 0 01/26/2020 01:20:00 PM EDT - 01/26/2020 01:40:00 PM EDT WITHDRAWING FROM DRUGS [facility] WITHDRAWING FROM DRUGS Patient discharged. Medications Medication Brand Name Start Date Product Form Dose Route Admi nistrative Instructions Pharmacy Instructions Status Indications Reaction Description Data Source(s) No Active Medications 10/18/2020 12:00:00 AM EDT completed [facility] ([facility]) Mirtazapine 15 MG Oral Tablet Mirtazapine 10/18/2020 12:00:00 AM EDT ORAL active [facility] ([facility]) 24 HR Bupropion Hydrochloride 450 MG Extended Release Oral Tablet Bupropion Hydrochloride ER (XL) 10/18/2020 12:00:00 AM EDT ORAL a ctive [facility] ([facility]) Clindamycin 300 MG Oral Capsule Clindamycin HCL 05/25/2020 12:00:00 A M EST ORAL completed [facility] ([facility]) Ibuprofen 200 MG Oral Capsule Ibuprofen 05/17/2020 12:00:00 AM EST completed [facility] ([facility]) No Active Medications 04/15/2020 12:00:00 AM EST completed [facility] ([facility]) Cephalexin 500 MG Oral Capsule [Keflex] Keflex 03/30/2020 12:00:0 0 AM EST ORAL completed [facility] ([facility]) Mupirocin 0.02 MG/MG Topical Ointment Mupirocin 03/30/2020 12:00:00 AM EST completed [facility] ([facility]) 12-3 mg 02/02/2020 12:00:00 AM EDT film [...] type / Coverage type Policy ID Covered libertarian ID Covered libertarian's relationship to aguilar Policy Aguilar Plan Information [place] MED[place]ID [id number] S 7 [id number] LAVERN I [id number] Self [id number] LAVERN [id number] SP [id number] 200 [place] MEDICAID [id number] S 7 [id number] [facility] [id number] S [id number] MEDICAID [id number] S [id number] D [facility] P [id number] S [id number] Medicaid Dental S [id number] S [id number] ANSI-Commercial [id number] UNAVAILABLE UNAVAILA BLE SELF PAY ONLY 0 SP 0 [facility] [id number] SP [id number] 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 F17.210 Nicotine dependence, cigarettes, uncompl icated NICOTINE DEPENDENCE, CIGARETTES, UNCOMPLICATED Diagnosis 01/28/2020 09:00:00 AM EDT [facility] F11.20 Opioid dependence, uncomplicated OPIOID DEPENDEN CE, UNCOMPLICATED Diagnosis 01/28/2020 09:00:00 AM EDT [facility] F11.23 Opioid dependence with withdrawal OPIOID DEPENDE NCE WITH WITHDRAWAL Diagnosis 01/26/2020 01:20:00 PM EDT [facility] F11.20 Opioid dependence, uncomplicated Opioid Use Disorder, Severe Condition 12/08/2020 12:00:00 AM EDT [facility] ([facility]) F31.9 Bipolar disorder, unspecified Unspecified Bipola r and Related Disorder Condition 12/08/2020 12:00:00 AM EDT [facility] ([facility]) Surgeries/Procedures Procedure Description Date Indications Data Source(s) Extended Individual Psychotherapy - 45 min 12/08/2020 12:00:00 AM EDT - 12/08/2020 12:00:00 AM EDT [facility] ([facility]) Extended Individual Psychotherapy - 45 min 12:00:00 AM EDT [facility] ([facility]) EMERGENCY DEPARTMENT VISIT LOW/MODER SEVERITY EMERGENCY DEPT VISIT 01/26/2020 12:00:00 AM EDT [facility] Results ID Date Data Source [id number] 07/20/2020 10:17:00 AM EST [facility] (Tai Overton [...] r esult Normal (applies to non-numeric results) MTAA (Tai Overton MD) . Quantitative results of [...] developed and its performance characteristics determined by [facility]. It has not been cleared or approved by the Food and Drug Administration. The FDA has determined that such clearance or approval is not necessary. . For questions regarding this report please contact customer service at . ID Date Data Source [id number] 07/20/2020 10:17:00 AM EST [facility] (Tai Overton MD) Name Value Range Interpretation Code Description Data Brielle rce(s) Supporting Document(s) Hepatitis A virus IgG Ab [Units/volume] in Serum Laboratory test result Normal (applies to non-numeric results) [facility] (Tai Overton MD ) Performed at: [facility] [id number] Apprentice Carpenter: Syl Smith MD, Phone: [phone] Performed at: [address] [id number] Apprentice Carpenter: Kerri Jean MD, Phone: [phone] ID Date Data Source [id number] 07/20/2020 10:17:00 AM EST [facility] (Tai Overton [...] 100 million IU/mL. ID Date Data Source [id number] 07/20/2020 10:17:00 AM EST [facility] (Tai Overton [...] developed and its performance characteristics determined by [facility]. It has not been cleared or approved by the U.S. Food and Drug Administration. . The FDA has determined that such clearance or approval is not necessary. This test is used for clinical purposes. It should not be regarded as investigational or for research. ID Date Data Source [id number] 07/20/2020 10:17:00 AM EST [facility] (Tai Overton MD) Name Value Range Interpretation Code Description Data Brielle rce(s) Supporting Document(s) Hepatitis B virus surface Ab [Presence] in Serum by [facility] Laboratory test result Normal (applies to non-numeric results) M [facility]ENT (Tai Overton MD) ID Date Data Source [id number] 07/20/2020 10:17:00 AM EST [facility] (Tai Overton MD) Name Value Range Interpretation Code Description Data Brielle rce(s) Supporting Document(s) Laboratory test finding (navigational concept) Laboratory test r esult Above high normal [facility] (Tai Overton MD) <content>This screening test for Hepatit is C Virus was above the 1.0</content>
<content>cutoff index value and will be sent to reference lab</content>
<content>[facility], [address] [place],</content>
<content>[place] [address] for Hep C RNA GEENA testing to [...] (Tai Overton MD) ID Date Data Source [id number] 07/20/2020 10:17:00 AM EST [facility] (Tai Overton [...] Little GFR Left</content>
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
<content></content> Laboratory test finding (navigational concept) 99 [...] (Tai Overton MD) ID Date Data Source [id number] 07/20/2020 10:17:00 AM EST [facility] (Tai Overton [...] (Tai Overton MD) ID Date Data Source [id number] 07/20/2020 10:17:00 AM EST [facility] (Tai Overton [...] Overton MD) Laboratory test finding (navigational concept) 356 [...] (Tai Overton MD) ID Date Data Source [id number] 06/23/2020 12:54:00 PM EST [facility] WBCS IN MODERATE NUMBERSNO ORGANISMS SEE N Name Value Range Interpretation Code Description Data Brielle rce(s) Supporting Document(s) [facility] WBCS IN MODERATE NUMBERSNO ORGANISMS SEE N ID Date Data Source [id number] 06/19/2020 07:01:00 PM EST [facility] Physician DocumentationClBria pandya CenterName: Reyna HoonAge: 30 yrsSex: MaleDOB: 1990MRN: [id number] Date: 06/19/2020Time: 17:49Account#: [id number] MD:ED Physician Reji Gonzalez Summary:06/19/20 18:26Discharge OrderedLocation: Home Self Care mkProblem: an ongoing problem mkSymptoms: have improved mkCondition: Stable mkDiagnosis- Cutaneous abscess of left upper limb mkFollowup: mk- With: Private Physician- When: [facility]- Reason: Recheck today's complaints, Continuance of [...] a physician:.Patient is has been [facility]. He hascompleted a course of Keflex and [...] 96% on R/A; zsPain 0/10;18:49 ef118:49 DEFFERED px0Bdosxqyftv:18:23 I & D: Incision and drainage was [...] [clindamycin HCl 300 mg capsule (1 caps)] vt6Nrqje: PO;18:52 Follow up: Response: Medication administered at discharge. iy6Dsjjqzomxd:Dispatcher [employer] Saige Grullon FNP-C FNP-CmkShantie, Zachary, RN RN zsFishel, Erica, RN RN jl1UwizwqbEri aiken MD MD vkCorrections: (The following items were deleted from the chart)18:15 17:50 Allergies: No known Allergies; zs ef118:32 18:14 cefTRIAXone 1 grams IM once ordered. [facility] Name Value Range Interpretation Code Description Data Brielle rce(s) Supporting Document(s) ID Date Data Source [id number] 06/19/2020 07:01:00 PM EST [facility] Katy terName: Reyna HoonAge: 30 yrsSex: MaleDOB: 1990MRN: [id number] Date: 06/19/2020Time: 17:49Account#: [id number] MD:Diagnosis: Cutaneous abscess of left upper [...] or ongoing COVID-19community spread or outside of [facility]? no Flu-like symptomsreported in the last 14 [...] threats or abuse. Denies injuries from another. jg0Volgmpnwrom screening: No deficits noted. Offer of HIV testing:patient was previously offered screening. Fall Risk None identified.Assessment:18:11 Pain: Complains of pain in left antecubital area. Derm: Abscess cy6gxtxtds on left antecubital area is golf ball [...] Primary Nurse. ef117:57 Saige Camp FNP-C is [facility]. mk17:57 Eri Gonzalez MD is Attending Physician. mk18:11 Patient has correct armband on for positive identification. Bed in ef1low position. Call light in reach. Verbal reassurance given. Pillowgiven.18:49 Assist provider with I & D: Performed by Saige VALLE. [id number] Medications:18:32 CANCELLED (Physician Discretion): cefTRIAXone 1 grams IM once mk18:43 Drug: Clindamycin 300 mg [clindamycin HCl 300 mg capsule (1 caps)] vm1Kjncu: PO;18:52 Follow up: Response: Medication administered at discharge. bb9Bmllmqt:18:26 Discharge ordered by . mk18:49 Disposition: Discharged to home ambulatory. ef118:49 Condition: stable, Provider notified of abnormal vital signs.18:49 Discharge instructions given to patient, Instructed on dischargeinstructions, follow up and referral plans. Demonstratedunderstanding of instructions, medications, Prescriptions given X 1.18:49 Discharge Assessment: Patient verbalized understanding of dispositioninstructions. Patient has no functional deficits.19:01 Patient left the ED. en1Fukatajnnd:aSige Camp, Shai Villarreal RN RN zsFishel, Erica, RN RN kw5Zxjnonweetx: (The following items were deleted from the chart)18:15 17:50 Allergies: No known Allergies; zs ef1 Name Value Range Interpretation Code Description Data Brielle rce(s) Supporting Document(s) Procedure Social History Code Duration Value Status Description Data Source(s ) Smoking 12/08/2020 12:00:00 AM EDT Unknown if ever smoked comp leted Unknown if ever smoked [facility] Vital Signs ID Date Data Source UNK Name Value Range Interpretation Code Description Data Source(s) Body temperature 97.6 [degF] 97.6 [degF] [facility] ([facility]) Respiratory rate 18 /min 18 /min [facility] ( [facility]) Body weight 153.00 [lb_av] 153.00 [lb_av] MEDEN T ([facility]) Systolic blood pressure 123 mm[Hg] 123 mm[Hg] M [facility] ([facility]) Diastolic blood pressure 89 mm[Hg] 89 mm[Hg] [facility] ([facility]) Heart rate 98 /min 98 /min [facility] ([facility]) Body temperature 97.6 [degF] 97.6 [degF] [facility] ([facility]) Systolic blood pressure 127 mm[Hg] 127 mm[Hg] M [facility] ([facility]) Heart rate 101 /min 101 /min [facility] ([facility]) Diastolic blood pressure 70 mm[Hg] 70 mm[Hg] [facility] ([facility]) Body weight 138.00 [lb_av] 138.00 [lb_av] [facility] T ([facility]) Respiratory rate 18 /min 18 /min [facility] ( [facility]) ID Date Data Source [id number] 01/28/2020 07:27:00 AM EDT [facility] spital Name Value Range Interpretation Code Description Data Source(s) Weight Measurement Method 8 8 [facility] [address] [facility] [facility] Source 7 7 [facility] Temperature 98.6 98.6 [facility] spital Respiratory Effort 1 1 [facility] Respiratory Rate 18 18 [facility] Pulse Assessment Method 4 4 G [facility] Pulse Rate 95 95 [facility] pital Height [address] [facility] [facility] Blood Pressure 128/81 128/81 [facility] Weight Measurement Method 8 8 [facility] Weight 2400 2400 [facility] pital Temperature Source 7 7 [facility] Temperature 98.6 98.6 [facility] spital Respiratory Effort 1 1 [facility] Respiratory Rate 18 18 [facility] Pulse Assessment Method 4 4 G [facility] Pulse Rate 95 95 [facility] pital Height [address] [facility] [facility] Blood Pressure 128/81 128/81 [facility]
[2021-03-24] MEDS ORDERED: BUPR150T12 (07:46)
[2021-03-24] MEDS ORDERED: MIRT1TAB15 (07:46)
[2021-03-24] MEDS ORDERED: ARIP1TAB10 (07:46)
[2021-03-24] MEDS ORDERED: FURO40TA2 (07:46)
[2021-03-24] MEDS ORDERED: SPIR50TA4 (07:46)
[2021-03-24] MEDS ORDERED: NALOXONE INJ 0.4MG/1ML VIAL (J2310 PER 1MG) IV STA (07:47)
[2021-03-24] MEDS ORDERED: NALOXONE INJ 0.4MG/1ML VIAL (J2310 PER 1MG) As Ordered ONE (07:49)
[2021-03-24 08:50] LABS: AMPHETAMINES LEVEL URINE POSITIVE (NEGATIVE); BARBITURATES URINE NEGATIVE (NEGATIVE); BENZODIAZEPINES URINE NEGATIVE (NEGATIVE); CANNABINOIDS URINE NEGATIVE (NEGATIVE); COCAINE METABOLITE URINE NEGATIVE (NEGATIVE); METHADONE URINE NEGATIVE (NEGATIVE); OPIATES URINE POSITIVE (NEGATIVE); PHENCYCLIDINE URINE NEGATIVE (NEGATIVE)
[2021-03-24 08:51] LABS: ACETAMINOPHEN LEVEL 5.7 UG/ML (10.0-30.0); ALBUMIN 1.7 GM/DL (3.2-5.2); ALT/SGPT 79 U/L (12-78); BILIRUBIN,DIRECT 0.6 MG/DL (0.0-0.2); BLOOD UREA NITROGEN 66 MG/DL (7-18); CALCIUM LEVEL 7.1 MG/DL (8.5-10.1); CARBON DIOXIDE LEVEL 20 MEQ/L (21-32); CHLORIDE LEVEL 93 MEQ/L (98-107); CK-MB VALUE MASS 11.2 NG/ML (<3.6); CPK CREATINE PHOSPHOKINASE 153 U/L (39-308); CREATININE FOR GFR 3.59 MG/DL (0.70-1.30); ETHYL ALCOHOL (ETHANOL) 0.004 % (0.000-0.010); GLOMERULAR FILTRATION RATE 21.4 (>60); GLUCOSE, FASTING 125 MG/DL (70-100); LIPASE 162 U/L (73-393); MB/CK RELATIVE INDEX 7.32 (< OR =4); POTASSIUM SERUM 3.7 MEQ/L (3.5-5.1); SALICYLATE LEVEL 1.7 MG/DL (5.0-30.0); SODIUM LEVEL 125 MEQ/L (136-145); TOTAL PROTEIN 5.2 GM/DL (6.4-8.2); TROPONIN I < 0.02 NG/ML (< 0.10)
[2021-03-24 09:11] LABS: HEMATOCRIT 25.6 % (42.0-52.0); HEMOGLOBIN 9.1 g/dl (13.5-17.5); MEAN CORPUSCULAR HEMOGLOBIN 29.4 pg (27.0-33.0); MEAN CORPUSCULAR HGB CONC 35.5 g/dl (32.0-36.5); MEAN CORPUSCULAR VOLUME 82.8 fl (80.0-96.0); RED BLOOD COUNT 3.09 10^6/uL (4.30-6.10)
[2021-03-24 09:37] LABS: PLATELET COUNT, AUTOMATED 65 10^3/uL (150-450)
[2021-03-24 09:40] LABS: ATYPICAL LYMPH 2 % (0-5); LYMPHOCYTES 12 % (16-44); NEUTROPHILS 83 % (28-66)
[2021-03-24 09:41] LABS: PLATELET ESTIMATE DECREASED (NORMAL)
--- NOTE | 2021-03-24 10:19 | REP ---
INDICATION: ARF. COMPARISON: 11/04/2013. TECHNIQUE: Single portable AP view of the chest was performed. FINDINGS: There is cardiomegaly. There is vascular congestion. There is diffuse interstitial edema. Alveolar infiltrate/atelectasis is seen in the left base with a suspected left pleural effusion. The visualized osseous structures are unremarkable. IMPRESSION: Cardiomegaly with vascular congestion and diffuse interstitial edema. Suspected left effusion and alveolar infiltrate/atelectasis in the left lung base. <Electronically signed by Nimesh Chowdhury > 03/24/21 1016
[2021-03-24] MEDS ORDERED: HOME MED LIST COMPLETE! XX SCH (10:20)
[2021-03-24 10:46] LABS: RSV AMPLIFICATION NEGATIVE (NEGATIVE)
--- OUTSIDE RECORDS SUMMARY | 2021-03-24 11:25 | CCD ---
Author Author [facility] Organization [facility] Address Unknown Phone Unavailable Care Team Providers Care Livestock Handler Name Role Phone Pranav VILLALBA MD Unavailable [...] Shantal Pyle Unavailable JEANIE IV, L SVETLANA SPRINKLER IRRIGATION EQUIPMENT MECHANIC Unavailable Unavailable JEANIE IV, L SVETLANA SPRINKLER IRRIGATION EQUIPMENT MECHANIC Unavailable Unavailable JEANIE IV, L SVETLANA SPRINKLER IRRIGATION EQUIPMENT MECHANIC Unavailable Unavailable JEANIE IV, L SVETLANA SPRINKLER IRRIGATION EQUIPMENT MECHANIC Unavailable Unavailable JEANIE IV, L SVETLANA SPRINKLER IRRIGATION EQUIPMENT MECHANIC Unavailable Unavailable JEANIE IV, L SVETLANA SPRINKLER IRRIGATION EQUIPMENT MECHANIC Unavailable Unavailable JEANIE IV, L SVETLANA SPRINKLER IRRIGATION EQUIPMENT MECHANIC Unavailable Unavailable JEANIE IV, L SVETLANA SPRINKLER IRRIGATION EQUIPMENT MECHANIC Unavailable Unavailable JEANIE IV, L SVETLANA SPRINKLER IRRIGATION EQUIPMENT MECHANIC Unavailable Unavailable JEANIE IV, L SVETLANA SPRINKLER IRRIGATION EQUIPMENT MECHANIC Unavailable Unavailable JEANIE IV, L SVETLANA SPRINKLER IRRIGATION EQUIPMENT MECHANIC Unavailable Unavailable JEANIE IV, L SVETLANA SPRINKLER IRRIGATION EQUIPMENT MECHANIC Unavailable Unavailable JEANIE IV, L SVETLANA SPRINKLER IRRIGATION EQUIPMENT MECHANIC Unavailable Unavailable JEANIE IV, L SVETLANA SPRINKLER IRRIGATION EQUIPMENT MECHANIC Unavailable Unavailable JEANIE IV, L SVETLANA SPRINKLER IRRIGATION EQUIPMENT MECHANIC Unavailable Unavailable JEANIE IV, L SVETLANA SPRINKLER IRRIGATION EQUIPMENT MECHANIC Unavailable Unavailable JEANIE IV, L SVETLANA SPRINKLER IRRIGATION EQUIPMENT MECHANIC Unavailable Unavailable JEANIE IV, L SVETLANA SPRINKLER IRRIGATION EQUIPMENT MECHANIC Unavailable Unavailable JEANIE IV, L SVETLANA SPRINKLER IRRIGATION EQUIPMENT MECHANIC Unavailable Unavailable JEANIE IV, L SVETLANA SPRINKLER IRRIGATION EQUIPMENT MECHANIC Unavailable Unavailable JEANIE IV, L SVETLANA SPRINKLER IRRIGATION EQUIPMENT MECHANIC Unavailable Unavailable JEANIE IV, L SVETLANA SPRINKLER IRRIGATION EQUIPMENT MECHANIC Unavailable Unavailable JEANIE IV, L SVETLANA SPRINKLER IRRIGATION EQUIPMENT MECHANIC Unavailable Unavailable JEANIE IV, L SVETLANA SPRINKLER IRRIGATION EQUIPMENT MECHANIC Unavailable Unavailable JEANIE IV, L SVETLANA SPRINKLER IRRIGATION EQUIPMENT MECHANIC Unavailable Unavailable JEANIE IV, L SVETLANA SPRINKLER IRRIGATION EQUIPMENT MECHANIC Unavailable Unavailable JEANIE IV, L SVETLANA SPRINKLER IRRIGATION EQUIPMENT MECHANIC Unavailable Unavailable JEANIE IV, L SVETLANA SPRINKLER IRRIGATION EQUIPMENT MECHANIC Unavailable Unavailable JEANIE IV, L SVETLANA SPRINKLER IRRIGATION EQUIPMENT MECHANIC Unavailable Unavailable JEANIE IV, L SVETLANA SPRINKLER IRRIGATION EQUIPMENT MECHANIC Unavailable Unavailable JEANIE IV, L SVETLANA SPRINKLER IRRIGATION EQUIPMENT MECHANIC Unavailable Unavailable JEANIE IV, L SVETLANA SPRINKLER IRRIGATION EQUIPMENT MECHANIC Unavailable Unavailable JEANIE IV, L SVETLANA SPRINKLER IRRIGATION EQUIPMENT MECHANIC Unavailable Unavailable JEANIE IV, L SVETLANA SPRINKLER IRRIGATION EQUIPMENT MECHANIC Unavailable Unavailable JEANIE IV, L SVETLANA SPRINKLER IRRIGATION EQUIPMENT MECHANIC Unavailable Unavailable JEANIE IV, L SVETLANA SPRINKLER IRRIGATION EQUIPMENT MECHANIC Unavailable Unavailable JEANIE IV, L SVETLANA SPRINKLER IRRIGATION EQUIPMENT MECHANIC Unavailable Unavailable JEANIE IV, L SVETLANA SPRINKLER IRRIGATION EQUIPMENT MECHANIC Unavailable Unavailable Luisa GONZALEZ M.D. Unavailable Unavailable [...] G FRANCO PA Unavailable Unavailable TONTARSKI, G RFANCO PA Unavailable Unavailable TONTARSKI, G FRANCO PA [...] G FRANCO PA Unavailable Unavailable Stanford Chau ACTIONSCRIPT DEVELOPER Unavailable Unavailable Stanford Chau ACTIONSCRIPT DEVELOPER Unavailable Unavailable Re-disclosure Warning The records that [...] by Article 27-F of the [facility] Public Health law. If you continue you may have access to information: Regarding HIV / AIDS; Provided by facilities licensed or operated by the [facility] Office of Mental Health; or Provided by the [facility] Office for People With Developmental Disabilities. If such information is present, then the following [facility] mandated warning applies: This information has [...] law may result in a fine or shelter sentence or both. A general authorization for the release of medical or other information is NOT sufficient authorization for further disc losure. Encounters Encounter Providers Location Date Indications Data Source(s ) Attender: Shantalpenelope Pyle 12/08/2020 12:00:00 AM E DT [facility] ([facility]) Extended Individual Psychotherapy - 45 min Attender: Valenteyen Pyle [facility] 12/07/2020 09:45:00 AM EDT - 12/07/2020 09:45:00 AM EDT [facility] ([facility]) [facility] 02[facility]:00 PM EST [facility] (Tai Overton MD) Emergency Attender: ERI GONZALEZ M.D.Attender: ERI CARVALHO M.D. ER-ER 06/19/2020 05:49:00 PM EST - 06/19/2020 07:01:00 PM [facility] Patient discharged. Outpatient Attender: Татьяна Chau [facility] 09:00:00 AM EDT - 01/28/2020 09:01:00 AM EDT [facility] Patient discharged. Outpatient Attender: SVETLANA WARE IV ED-[facility] 2019 02:00:00 PM EDT - 01/26/2020 02:01:00 PM EDT [facility] Patient discharged. Emergency Attender: CAMILA VILLALBA MD ED-ED 0 01/26/2020 01:20:00 PM EDT - 01/26/2020 01:40:00 PM EDT WITHDRAWING FROM DRUGS [facility] WITHDRAWING FROM DRUGS Patient discharged. Medications Medication Brand Name Start Date Product Form Dose Route Admi nistrative Instructions Pharmacy Instructions Status Indications Reaction Description Data Source(s) No Active Medications 10/18/2020 12:00:00 AM EDT completed [facility] ([facility]) Mirtazapine 15 MG Oral Tablet Mirtazapine 10/18/2020 12:00:00 AM EDT ORAL active [facility] ([facility]) 24 HR Bupropion Hydrochloride 450 MG Extended Release Oral Tablet Bupropion Hydrochloride ER (XL) 10/18/2020 12:00:00 AM EDT ORAL a ctive [facility] ([facility]) Clindamycin 300 MG Oral Capsule Clindamycin HCL 05/25/2020 12:00:00 A M EST ORAL completed [facility] ([facility]) Ibuprofen 200 MG Oral Capsule Ibuprofen 05/17/2020 12:00:00 AM EST completed [facility] ([facility]) No Active Medications 04/15/2020 12:00:00 AM EST completed [facility] ([facility]) Cephalexin 500 MG Oral Capsule [Keflex] Keflex 03/30/2020 12:00:0 0 AM EST ORAL completed [facility] ([facility]) Mupirocin 0.02 MG/MG Topical Ointment Mupirocin 03/30/2020 12:00:00 AM EST completed [facility] ([facility]) 12-3 mg 02/02/2020 12:00:00 AM EDT [...] type / Coverage type Policy ID Covered democrat ID Covered democrat's relationship to aguilar Policy Aguilar Plan Information [place] MED[place] [id number] S 7 [id number] [place]AV[place] I [id number] Self [id number] LAVERN [id number] SP [id number] [place] MED[place]ID [id number] S 7 [id number] LAVERN 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 L02.414 Cutaneous abscess of left upper limb CUT ANEOUS ABSCESS OF LEFT UPPER LIMB Diagnosis 06/19/2020 05:49:00 PM EST [facility] F17.210 Nicotine dependence, cigarettes, uncompl icated NICOTINE DEPENDENCE, CIGARETTES, UNCOMPLICATED Diagnosis 01/28/2020 09:00:00 AM EDT [facility] F11.20 Opioid dependence, uncomplicated OPIOID DEPENDEN CE, UNCOMPLICATED Diagnosis 01/28/2020 09:00:00 AM EDT [facility] F11.23 Opioid dependence with withdrawal OPIOID DEPENDE NCE WITH WITHDRAWAL Diagnosis 01/26/2020 01:20:00 PM EDT [facility] F11.20 Opioid dependence, uncomplicated Opioid Use Disorder, Severe Condition 12/08/2020 12:00:00 AM EDT [facility] ([facility]) F31.9 Bipolar disorder, unspecified Unspecified [place]ipola r and Related Disorder Condition 12/08/2020 12:00:00 AM EDT [facility] ([facility]) Surgeries/Procedures Procedure Description Date Indications Data Source(s) Extended Individual Psychotherapy - 45 min 12/08/2020 12:00:00 AM EDT - 12/08/2020 12:00:00 AM EDT [facility] ([facility]) Extended Individual Psychotherapy - 45 min 12:00:00 AM EDT [facility] ([facility]) EMERGENCY DEPARTMENT VISIT LOW/MODER SEVERITY EMERGENCY DEPT VISIT 01/26/2020 12:00:00 AM EDT [facility] Results ID Date Data Source [id number] 07/20/2020 10:17:00 AM EST [facility] (Tai Overton [...] developed and its performance characteristics determined by [facility]. It has not been cleared or approved by the Food and Drug Administration. The FDA has determined that such clearance or approval is not necessary. . For questions regarding this report please contact customer service at . ID Date Data Source [id number] 07/20/2020 10:17:00 AM EST [facility] (Tai Overton MD) Name Value Range Interpretation Code Description Data Brielle rce(s) Supporting Document(s) Hepatitis A virus IgG Ab [Units/volume] in Serum Laboratory test result Normal (applies to non-numeric results) [facility] (Tai Overton MD ) Performed at: [facility] Lab[address] [id number] Access Lead: Syl Smith MD, Phone: [phone] Performed at: [address] [id number] Access Lead: Kerri Jean MD, Phone: [phone] ID Date Data Source [id number] 07/20/2020 10:17:00 AM EST [facility] ([facility]ai Overton [...] 100 million IU/mL. ID Date Data Source [id number] 07/20/2020 10:17:00 AM EST [facility] (Tai Overton [...] developed and its performance characteristics determined by [facility]. It has not been cleared or approved by the U.S. Food and Drug Administration. . The FDA has determined that such clearance or approval is not necessary. This test is used for clinical purposes. It should not be regarded as investigational or for research. ID Date Data Source [id number] 07/20/2020 10:17:00 AM EST [facility] (Tai Overton MD) Name Value Range Interpretation Code Description Data Brielle rce(s) Supporting Document(s) Hepatitis B virus surface Ab [Presence] in Serum by [facility] Laboratory test result Normal (applies to non-numeric results) M [facility] (Tai Overton MD) ID Date Data Source [id number] 07/20/2020 10:17:00 AM EST [facility] (Tai Overton MD) Name Value Range Interpretation Code Description Data Brielle rce(s) Supporting Document(s) Laboratory test finding (navigational concept) Laboratory test r esult Above high normal [facility] (Tai Overton MD) <content>This screening test for Hepatit is C Virus was above the 1.0</content>
<content>cutoff index value and will be sent to reference lab</content>
<content>[facility], [address] [place],</content>
<content>[place] [id number] for Hep C RNA GEENA testing to [...] (Tai Overton MD) ID Date Data Source [id number] 07/20/2020 10:17:00 AM EST [facility] (Tai Overton [...] Little GFR Left</content>
<content>ESRD GFR <15 on BARK GRINDER</content>
<content></content> Laboratory test finding (navigational concept) 99 [...] (Tai Overton MD) ID Date Data Source [id number] 07/20/2020 10:17:00 AM EST [facility] (Tai Overton [...] Normal (applies to non-numeric results) [facility] (Tai Oevrton MD) ID Date Data Source [id number] 07/20/2020 10:17:00 AM EST [facility] (Tai Overton [...] Normal (applies to non-numeric results) [facility] (Tai vOerton MD) Laboratory test finding (navigational concept) 32.7 [...] (Tai Overton MD) ID Date Data Source [id number] 06/23/2020 12:54:00 PM EST [facility] IN MODERATE NUMBERSNO ORGANISMS SEE N Name Value Range Interpretation Code Description Data Brielle rce(s) Supporting Document(s) [facility] WBCS IN MODERATE NUMBERSNO ORGANISMS SEE N ID Date Data Source [id number] 06/19/2020 07:01:00 PM EST [facility] Physician DocumentationClBria pandya CenterName: Reyna HoonAge: 30 yrsSex: MaleDOB: 1990MRN: [id number] Date: 06/19/2020Time: 17:49Account#: [id number] MD:ED Physician Reji Gonzalez Summary:06/19/20 18:26Discharge OrderedLocation: Home Self Care mkProblem: an ongoing problem mkSymptoms: have improved mkCondition: Stable mkDiagnosis- Cutaneous abscess of left upper limb mkFollowup: mk- With: Private Physician- When: [facility]- Reason: Recheck today's complaints, Continuance of [...] a physician:.Patient is has been [facility]. He hascompleted a course of Keflex and [...] 96% on R/A; zsPain 0/10;18:49 ef118:49 DEFFERED ix1Ukznqemcba:18:23 I & D: Incision and drainage was [...] [clindamycin HCl 300 mg capsule (1 caps)] [id number]: PO;18:52 Follow up: Response: Medication administered at discharge. kf1Qwcnimxoll:Dispatcher [employer] Saige Grullon FNP-C FNP-CmkShantie, Zachary, RN RN zsFishel, Erica, RN RN [id number] aiken MD MD vkCorrections: (The following items were deleted from the chart)18:15 17:50 Allergies: No known Allergies; zs ef118:32 18:14 cefTRIAXone 1 grams IM once ordered. [facility] Name Value Range Interpretation Code Description Data Brielle rce(s) Supporting Document(s) ID Date Data Source [id number] 06/19/2020 07:01:00 PM EST [facility]ClaxA[facility] [place] terName: Reyna HoonAge: 30 yrsSex: MaleDOB: 1990MRN: [id number] Date: 06/19/2020Time: 17:49Account#: [id number] MD:Diagnosis: Cutaneous abscess of left upper [...] or ongoing COVID-19community spread or outside of [facility]? no Flu-like symptomsreported in the last 14 [...] threats or abuse. Denies injuries from another. [id number] screening: No deficits noted. Offer of HIV testing:patient was previously offered screening. Fall Risk None identified.Assessment:18:11 Pain: Complains of pain in left antecubital area. Derm: Abscess [id number] on left antecubital area is golf ball [...] Primary Nurse. ef117:57 Saige Camp FNP-C [facility]. mk17:57 Eri Gonzalez MD is Attending Physician. mk18:11 Patient has correct armband on for positive identification. Bed in ef1low position. Call light in reach. Verbal reassurance given. Pillowgiven.18:49 Assist provider with I & D: Performed by Saige VALLE. [id number] Medications:18:32 CANCELLED (Physician Discretion): cefTRIAXone 1 grams IM once mk18:43 Drug: Clindamycin 300 mg [clindamycin HCl 300 mg capsule (1 caps)] qk7Onhsq: PO;18:52 Follow up: Response: Medication administered at discharge. bk0Hxvxwnj:18:26 Discharge ordered by . mk18:49 Disposition: Discharged to home ambulatory. ef118:49 Condition: stable, Provider notified of abnormal vital signs.18:49 Discharge instructions given to patient, Instructed on dischargeinstructions, follow up and referral plans. Demonstratedunderstanding of instructions, medications, Prescriptions given X 1.18:49 Discharge Assessment: Patient verbalized understanding of dispositioninstructions. Patient has no functional deficits.19:01 Patient left the ED. [id number]:Saige Camp, Shai Villarreal RN RN zsFishel, Erica, RN RN [id number]: (The following items were deleted from the chart)18:15 17:50 Allergies: No known Allergies; zs ef1 Name Value Range Interpretation Code Description Data Brielle rce(s) Supporting Document(s) Procedure Social History Code Duration Value Status Description Data Source(s ) Smoking 12/08/2020 12:00:00 AM EDT Unknown if ever smoked comp leted Unknown if ever smoked [facility] ([facility]) Vital Signs ID Date Data Source UNK Name Value Range Interpretation Code Description Data Source(s) Respiratory rate 18 /min 18 /min [facility] ( [facility]) Systolic blood pressure 123 mm[Hg] 123 mm[Hg] M [facility] ([facility]) Body temperature 97.6 [degF] 97.6 [degF] [facility] ([facility]) Diastolic blood pressure 89 mm[Hg] 89 mm[Hg] [facility] Body weight 153.00 [lb_av] 153.00 [lb_av] MEDEN T ([facility]) Heart rate 98 /min 98 /min [facility] ([facility]) Body temperature 97.6 [degF] 97.6 [degF] [facility] ([facility]) Diastolic blood pressure 70 mm[Hg] 70 mm[Hg] [facility] ([facility]) Systolic blood pressure 127 mm[Hg] 127 mm[Hg] M [facility] ([facility]) Respiratory rate 18 /min 18 /min [facility] ( [facility]) Heart rate 101 /min 101 /min [facility] ([facility]) Body weight 138.00 [lb_av] 138.00 [lb_av] JOSÉ MIGUEL T ([facility]) ID Date Data Source [id number] 01/28/2020 07:27:00 AM EDT [facility] Name Value Range Interpretation Code Description Data Source(s) Weight Measurement Method 8 8 [facility] Weight 2400 2400 [facility] pital Temperature Source 7 7 [facility] Temperature 98.6 98.6 [facility] spital Respiratory Effort 1 1 [facility] Respiratory Rate 18 18 [facility] Pulse Assessment Method 4 4 G [facility] Pulse Rate 95 95 [facility]ital [facility] 72 72 [facility] 128/81 128/81 [facility] Weight Measurement Method 8 8 [facility] Weight 2400 2400 [facility] pital Temperature Source 7 7 [facility] Temperature 98.6 98.6 [facility] spital Respiratory Effort 1 1 [facility] Respiratory Rate 18 18 [facility] Pulse Assessment Method 4 4 G [facility] Pulse Rate 95 95 [facility] pital Height 72 72 [facility] 128/81 128/81 [facility]
[2021-03-24] MEDS ORDERED: FUROSEMIDE 20MG/2ML VIAL (J1940) IV ONE ×2 (11:30→12:30)
[2021-03-24 13:31] LABS: INR 1.28; PROTHROMBIN TIME 16.4 SECONDS (12.7-14.5)
[2021-03-24 13:32] LABS: PARTIAL THROMBOPLASTIN TIME 35.4 SECONDS (25.9-37.0)
[2021-03-24 13:35] LABS: D-DIMER QUANT 3255.11 ng/ml (<500)
[2021-03-24] MEDS: dexameTHASONE 4 MG/ML 1ML VIAL (J1100 PER 1MG) IV SCH (13:48)
[2021-03-24 13:50] LABS: ALBUMIN 1.6 GM/DL (3.2-5.2); ALT/SGPT 72 U/L (12-78); BILIRUBIN,DIRECT 0.7 MG/DL (0.0-0.2); BLOOD UREA NITROGEN 65 MG/DL (7-18); CALCIUM LEVEL 7.3 MG/DL (8.5-10.1); CARBON DIOXIDE LEVEL 22 MEQ/L (21-32); CHLORIDE LEVEL 97 MEQ/L (98-107); CPK CREATINE PHOSPHOKINASE 177 U/L (39-308); FERRITIN 1990 NG/ML (26-388); GLOMERULAR FILTRATION RATE 26.3 (>60); GLUCOSE, FASTING 128 MG/DL (70-100); LDH LACTATE DEHYDROGENASE 173 U/L (87-241); MAGNESIUM LEVEL 2.3 MG/DL (1.8-2.4); NT-PRO BNP 449 PG/ML (<125); POTASSIUM SERUM 3.4 MEQ/L (3.5-5.1); SODIUM LEVEL 126 MEQ/L (136-145); TOTAL PROTEIN 5.1 GM/DL (6.4-8.2); TROPONIN I < 0.02 NG/ML (< 0.10)
[2021-03-24] MEDS ORDERED: VANCOMYCIN INTERMITTENT/PULSE DOSING BY CLINICAL PHARMACIST PER DOSING PROTOCOL XX SCH (15:10)
--- NOTE | 2021-03-24 15:27 | HPEPDOC ---
[facility] Medical History & Physical Date of Admission Mar 24, 2021 Date of Service: Mar 24, 2021 Attending Physician: DIANA ESCUDERO DO History and Physical CHIEF COMPLAINT: Altered mental status HISTORY OF PRESENT ILLNESS: Patient is a 31-year-old male who presented emergency department after he found unresponsive in his trailer. Patient needed a dose of Narcan in the emergency department prior to waking up. Patient admitted to smoking methamphetamine as well as using opiates IV. Patient states when I am speaking with him that he is feeling much better than he did when he initially came into the hospital. Patient admits to using drugs and not really eating or drinking much over the past few days. Patient denies having any pain at this time. Patient believes his legs do look a little puffier than usual. Patient denies any other symptoms at this time. PAST MEDICAL HISTORY: 1. Polysubstance abuse. 2. Hepatitis C PAST SURGICAL HISTORY: Patient denies any surgical history SOCIAL HISTORY: Patient smokes cigarettes on a daily basis, drinks alcohol on a daily basis and admits to using drugs as above FAMILY HISTORY: Patient denies any known family history ALLERGIES: Please see below. REVIEW OF SYSTEMS: General: Patient denies fevers HEENT: Patient denies headaches Cardiovascular: Patient denies chest pain Respiratory: Patient denies shortness of breath, cough GI: Patient denies abdominal pain, nausea, vomiting, diarrhea : Patient denies increased frequency or pain with urination Extremities: Patient reports that his legs do appear more swollen than usual Neurological: Patient denies numbness or tingling in legs Skin: Patient denies any new rashes or lesions. Hematologic: Patient denies any easy bruising. Lymphatic: Patient denies any lumps lumps or bumps in neck, axilla, or groin HOME MEDICATIONS: Please see below. PHYSICAL EXAMINATION: VITAL SIGNS: Temperature 98.2, pulse 83, respiratory rate 14, blood pressure 95/56, pulse oximetry 99% on 3 L via nasal cannula General: Alert and oriented male patient who was initially sleeping but awoke easily when I walked in the room. Patient did not appear to be in any acute distress. HEENT: Normocephalic, atraumatic, moist mucous membranes. Neck: No lymphadenopathy or thyromegaly Cardiac: Regular rate and rhythm, no murmurs, normal S1, normal S2 Pulm: Inspiratory crackles heard throughout the lung arreaga bilaterally especially in the bases Abd: Nondistended, nontender to palpation, normal bowel sounds Ext: Trace edema in the bilateral lower extremities around the ankle and up to the level of the mid villalobos Neuro: Patient was able to move all 4 extremities on command and reported equal sensation light touch in all 4 extremities. Skin: Track delong on the right antecubital fossa LABORATORY DATA: See below. IMAGING: Chest x-ray performed on 03/24/2021 was reported to show cardiomegaly with vascular congestion and diffuse interstitial edema. Suspected left effusion alveolar infiltrate/atelectasis in the left lung base. MICROBIOLOGY: Please see below. ASSESSMENT: 31-year-old male was found altered in his trailer and admitted to using drugs he needed Narcan to wake up who was found to be in acute renal failure with hyponatremia who was also found to be Covid positive . PLAN: 1. Acute renal failure. Patient's creatinine was 3.7 on initial labs. This has improved to 3.0 after 2 L of normal saline bolus that was given to the patient in the emergency department. Patient continues to put out urine however, the patient does appear to have interstitial edema in his lungs with cardiomegaly. The patient's acute renal failure may be secondary to cardiorenal syndrome secondary to acute heart failure from the patient's drug use. Echocardiogram has been ordered. 20 mg of IV Lasix has been given. Patient's blood pressure has been around the mid 90s systolic with the highest as 100 after his bolus. We will need to monitor the patient's blood pressure very closely after diuresis to see if this improves the patient's blood pressure. 2. Polysubstance use. Patient has been doing well since being in the emergency department is not needed any additional doses of Narcan. We will need to continue to monitor the patient very carefully for withdrawal symptoms or agitation. 3. Hyponatremia. This may be secondary to hypervolemic hyponatremia secondary to acute heart failure. Patient will be diuresed and we will continue to monitor the patient's sodium level carefully. 4. COVID-19. Patient is currently hypoxic which may secondary to the pulmonary edema seen on chest x-ray however, patient will be started on dexamethasone for COVID-19 hypoxia. If the patient's hypoxia persist, remdesivir will be started. Patient is unaware of when his symptoms started or that he had symptoms of COVID-19. 5. Pulmonary edema. This may be secondary to acute heart failure. Patient had echocardiogram done we are awaiting the read. We will start the patient on Lasix. 6. Thrombocytopenia. This may be secondary to patient's drug use or patient's COVID-19. We will continue to monitor the patient's platelets at this time. This may be also secondary to hypervolemia. 7. SIRS criteria. Patient was tachycardic and hypotensive when he was in the emergency department. Patient's procalcitonin was greatly elevated. Blood cultures have been ordered and patient has been started on vancomycin and Zosyn for broad antibiotic coverage. 8. DVT prophylaxis: Teds and sequentials 9. CODE STATUS: Full code Disposition: Patient be admitted to the progressive care unit. I expect the p atient to be discharged after greater than or equal to 2 midnights. Vital Signs Vital Signs Date Time Temp Pulse Resp B/P (MAP) Pulse Ox O2 Delivery O2 Flow Rate FiO2 03/24/21 13:45 83 95/56 (69) 99 Nasal Cannula 3.0 03/24/21 09:45 14 03/24/21 06:59 98.2 Laboratory Data Labs 24H Laboratory Tests 2 03/24/21 06:51: Anion Gap 12, Glomerular Filtration Rate 21.4L, Lactic Acid Level 1.5, Calcium Level 7.1L, Total Bilirubin 1.0, Direct Bilirubin 0.6H, Aspartate Amino Transf (AST/SGOT) 161H, Alanine Aminotransferase (ALT/SGPT) 79H, Alkaline Phosphatase 55, Total Creatine Kinase 153, Creatine Kinase MB 11.2H, Creatine Kinase MB Relative Index 7.32H, Troponin I < 0.02, Total Protein 5.2L, Albumin 1.7L, Albumin/Globulin Ratio 0.5, Lipase 162, Salicylates Level 1.7L, Acetaminophen Level 5.7L, Ethyl Alcohol Level 0.004 03/24/21 07:26: Urine Color CHANTALE, Urine Appearance CLOUDYH, Urine pH 5.0, Urine Specific [place] 1.016, Urine Protein 1+H, Urine Glucose (UA) NEGATIVE, Urine Ketones NEGATIVE, Urine Blood 1+H, Urine Nitrite NEGATIVE, Urine Bilirubin NEGATIVE, Urine Urobilinogen 2.0H, Urine Leukocyte Esterase NEGATIVE, Urine WBC (Auto) 7H, Urine RBC (Auto) 7H, Urine Hyaline Casts (Auto) 13, Urine Bacteria (Auto) 1+H, Urine Squamous Epithelial Cells 1, Urine Amorphous Sediment SMALLH, Urine Mucus (Auto) SMALL, Urine Sperm (Auto) , Urine Opiates Screen POSITIVEH, Urine Methadone Screen NEGATIVE, Urine Barbiturates Screen NEGATIVE, Urine Phen cyclidine Screen NEGATIVE, Urine Amphetamines Screen POSITIVEH, Urine Benzodiazepines Screen NEGATIVE, Urine Cocaine Metabolite Screen NEGATIVE, Urine Cannabinoids Screen NEGATIVE 03/24/21 08:41: Neutrophils (%) (Auto) , Nucleated Red Blood Cells % (auto) 0.0, Neutrophils 83H, Band Neutrophils 3, Lymphocytes (Manual) 12L, Atypical Lymphocytes 2, Red Blood Cell Morphology NORMAL, Platelet Estimate DECREASED, Immature Platelet Fraction 21.9H 03/24/21 09:43: Coronavirus (COVID-19)(PCR) POSITIVEA, Influenza Type A (RT-PCR) NEGATIVE, Influenza Type B (RT-PCR) NEGATIVE, Respiratory Syncytial Virus (PCR) NEGATIVE 03/24/21 12:30: Prothrombin Time 16.4H, Prothromb Time International Ratio 1.28, Activated Partial Thromboplast Time 35.4, Fibrinogen 302, D-Dimer, Quantitative 3255.11H, Anion Gap 7L, Glomerular Filtration Rate 26.3L, Calcium Level 7.3L, Magnesium Level 2.3, Ferritin 1990H, Total Bilirubin 1.0, Direct Bilirubin 0.7H, Aspartate Amino Transf (AST/SGOT) 151H, Alanine Aminotransferase (ALT/SGPT) 72, Alkaline Phosphatase 52, Lactate Dehydrogenase 173, Total Creatine Kinase 177, Troponin I < 0.02, C-Reactive Protein, Quantitative 13.80H, XU-Qaq-[id number]-Type Natriuretic Peptide 449H, Total Protein 5.1L, Albumin 1.6L, Albumin/Globulin Ratio 0.5, Procalcitonin 27.87 CBC/BMP Laboratory Tests 03/24/21 06:51 03/24/21 08:41 03/24/21 12:30 Home Medications Unable to Obtain Active Prescriptions or Reported Meds Allergies Coded Allergies: No Known Allergies (Unverified , 03/24/21) A-FIB/CHADSVASC A-FIB History Current/History of A-Fib/PAF?: No DIANA ESCUDERO DO Mar 24, 2021 15:27
[2021-03-24] MEDS ORDERED: POTASSIUM CHLORIDE 10MEQ SR TABLET PO ONE (15:30)
[2021-03-24] MEDS: PIPERACILLIN/TAZOBACTAM SOD 4.5 GM in D5W MINI-BAG PLUS 50 ML IV SCH ×2 (15:40→22:22)
[2021-03-24 18:05] VITALS: BP 107/67
[2021-03-24 18:15] VITALS: O2SAT 100
[2021-03-24] MEDS: VANCOMYCIN HCL 1,000 MG, VIAL MATE ADAPTER 1 EACH in NS 250 ML IV SCH ×2 (18:22→19:55)
[2021-03-24 20:00] VITALS: BP 103/63
[2021-03-24 20:08] LABS: CALCIUM LEVEL 7.6 MG/DL (8.5-10.1); CREATININE FOR GFR 2.35 MG/DL (0.70-1.30); GLOMERULAR FILTRATION RATE 34.8 (>60); POTASSIUM SERUM 4.1 MEQ/L (3.5-5.1)
--- NOTE | 2021-03-24 20:19 | ECGEPIP ---
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
[2021-03-24] MEDS: ACETAMINOPHEN 500 MG TAB PO PRN (22:23)
[2021-03-24 23:00] VITALS: O2SAT 99
[2021-03-24 23:45] VITALS: BP 92/50
[2021-03-25] VITALS (16 sets, daily range): BP systolic 89–102; BP diastolic 48–72; O2SAT 95–99
[2021-03-25] MEDS ORDERED: NS 500 ML IV ONE ×2 (00:05→01:00)
[2021-03-25] MEDS ORDERED: NS 1,000 ML IV SCH (00:05)
[2021-03-25 02:41] LABS: HEMATOCRIT 27.4 % (42.0-52.0); MEAN CORPUSCULAR HEMOGLOBIN 29.9 pg (27.0-33.0); MEAN CORPUSCULAR HGB CONC 36.5 g/dl (32.0-36.5); MEAN CORPUSCULAR VOLUME 81.8 fl (80.0-96.0); PLATELET COUNT, AUTOMATED 54 10^3/uL (150-450); RED BLOOD COUNT 3.35 10^6/uL (4.30-6.10); WHITE BLOOD COUNT 5.6 10^3/uL (4.0-10.0)
--- NOTE | 2021-03-25 03:08 | REPVR ---
PROCEDURE INFORMATION: Exam: CT Abdomen And Pelvis Without Contrast Exam date and time: 03/25/2021 1:06 AM Age: 31 years old Clinical indication: Abdominal pain; Generalized; Additional info: Abd pain TECHNIQUE: Imaging protocol: Computed tomography of the abdomen and pelvis without contrast. Radiation optimization: All CT scans at this facility use at least one of these dose optimization techniques: automated exposure control; mA and/or kV adjustment per patient size (includes targeted exams where dose is matched to clinical indication); or iterative reconstruction. COMPARISON: CR Chest, 1 view 03/24/2021 9:59 AM FINDINGS: Lungs: Bibasilar infiltrates and fibro-atelectatic change with prominent atelectasis or consolidation in the left lower lobe. Pleural spaces: Mild left pleural effusion and minimal right pleural effusion. Liver: The liver at mid clavicular line measures 16.0 cm. Gallbladder and bile ducts: The gallbladder is contracted with no stones. Pancreas: Normal. No ductal dilation. Spleen: The spleen measures 15.3 cm. Adrenal glands: Normal. No mass. Kidneys and ureters: Normal. No hydronephrosis. Stomach and bowel: Slight wall thickening of the colon. There are a few distal sigmoid diverticula without diverticulitis. Appendix: A normal appendix is seen. Intraperitoneal space: Minimal free fluid about the abdomen and pelvis. Vasculature: Unremarkable. No abdominal aortic aneurysm. Lymph nodes: Unremarkable. No enlarged lymph nodes. Urinary bladder: Unremarkable as visualized. Reproductive: Unremarkable as visualized. Bones/joints: Unremarkable. No acute fracture. Soft tissues: Subcutaneous edema about the abdomen and pelvis. IMPRESSION: 1. Borderline hepatomegaly and mild splenomegaly. 2. Slight subcutaneous edema with mild left and minimal right pleural effusions and minimal peritoneal ascites which may reflect generalized anasarca. 3. Bibasilar infiltrates with fibro-atelectatic change and prominent atelectasis or consolidation of the left lower lobe which may reflect pneumonia. 4. Minimal nonspecific pancolitis. Electronically signed by: Sivakumar Mo On 03/25/2021 03:07:50 AM
--- NOTE | 2021-03-25 04:01 | IPNPDOC ---
Text Note Date of Service The patient was seen on 03/25/21. NOTE Alerted by nursing staff at 0000 that patient was acutely meeting sepsis cri teria per policy with rectal temp of 102.1, tachycardia of 114, tachypnea of 24, hypoxia requiring 2L nasal canula. Saw and examined patient at this time who was complaining of left sided abdominal pain. Of note, patient appeared to be somewhat altered during my examination and would at times slur his speech and mumble his words. Physical exam only remarkable for tachycardia on auscultation and some mild edema of b/l lower extremities. 1L fluid bolus and tylenol given to good effect. Due to patients sepsis, possible ams and new abdominal pain, stat labs and imaging were ordered. 1. Hypotension - 2/2 sepsis, potentially also from decompensated alcoholic liver disease - patient responded for now to normal saline bolus. if patient's bp dips again, will strongly consider albumin infusion - patients current liver enzymes showing 2:1 ast:alt ratio, indicative of alcoholic liver disease. CT abdomen showing hepatomegaly, along with patients thrombocytopenia, elevated inr, hypoalbuminemia all indicative of liver disease. - admission labs calculated meld score 29, child knowles class B - patient already on empiric broad spectrum antibiotics - per chart review, day team already in consideration of remdesevir, will leave this decision to them at this time\ 2. AMS - drug induced vs. hepatic encephalopathy, or both - patient more alert after 1L fluid bolus. will monitor mentation closely - will give another dose of narcan if patient becomes somnolent VS,Fishbone, I+O VS, Fishbone, I+O Laboratory Tests 03/24/21 06:51 03/24/21 08:41 03/24/21 12:30 03/24/21 19:16 03/25/21 02:27 Vital Signs Date Time Temp Pulse Resp B/P (MAP) Pulse Ox O2 Delivery O2 Flow Rate FiO2 03/25/21 02:12 96.7 91 24 102/50 (67) 97 Nasal Cannula 2.0 I&O- Last 24 Hours up to 6 AM 03/25/21 06:00 Intake Total 4260 ml Output Total 4400 ml Balance -140 ml KIKI RUELAS Mar 25, 2021 04:01
[2021-03-25] MEDS: PIPERACILLIN/TAZOBACTAM SOD 4.5 GM in D5W MINI-BAG PLUS 50 ML IV SCH ×4 (04:11→22:04)
[2021-03-25 04:50] LABS: ALBUMIN 1.6 GM/DL (3.2-5.2); ALT/SGPT 63 U/L (12-78); BILIRUBIN,TOTAL 0.9 MG/DL (0.2-1.0); BLOOD UREA NITROGEN 57 MG/DL (7-18); CALCIUM LEVEL 7.2 MG/DL (8.5-10.1); CARBON DIOXIDE LEVEL 19 MEQ/L (21-32); CHLORIDE LEVEL 105 MEQ/L (98-107); CREATININE FOR GFR 1.94 MG/DL (0.70-1.30); FERRITIN 2071 NG/ML (26-388); GLOMERULAR FILTRATION RATE 43.5 (>60); GLUCOSE, FASTING 129 MG/DL (70-100); IRON (FE) 57 UG/DL (65-175); NT-PRO BNP 2577 PG/ML (<125); PERCENT SATURATION 51.8 % (19.7-50.0); POTASSIUM SERUM 4.3 MEQ/L (3.5-5.1); SODIUM LEVEL 135 MEQ/L (136-145); TOTAL IRON BINDING CAPACITY 110 UG/DL (250-450); TOTAL PROTEIN 5.2 GM/DL (6.4-8.2)
[2021-03-25 07:17] LABS: HEMATOCRIT 29.4 % (42.0-52.0); HEMOGLOBIN 10.7 g/dl (13.5-17.5); MEAN CORPUSCULAR HEMOGLOBIN 29.7 pg (27.0-33.0); MEAN CORPUSCULAR HGB CONC 36.4 g/dl (32.0-36.5); MEAN CORPUSCULAR VOLUME 81.7 fl (80.0-96.0); WHITE BLOOD COUNT 6.4 10^3/uL (4.0-10.0)
[2021-03-25 07:18] LABS: PLATELET COUNT, AUTOMATED 62 10^3/uL (150-450)
[2021-03-25 07:44] LABS: CALCIUM LEVEL 7.5 MG/DL (8.5-10.1); CREATININE FOR GFR 1.58 MG/DL (0.70-1.30); GLOMERULAR FILTRATION RATE 55.1 (>60); MAGNESIUM LEVEL 2.6 MG/DL (1.8-2.4); POTASSIUM SERUM 4.3 MEQ/L (3.5-5.1); VANCOMYCIN RANDOM 15.5 UG/ML
[2021-03-25 07:50] LABS: LYMPHOCYTES 8 % (16-44); MONOCYTES 3 % (0-5); NEUTROPHILS 89 % (28-66)
[2021-03-25 07:55] LABS: PLATELET ESTIMATE DECREASED (NORMAL)
[2021-03-25] MEDS ORDERED: VANCOMYCIN HCL 1,000 MG, VIAL MATE ADAPTER 1 EACH in NS 250 ML IV ONE (08:00)
[2021-03-25] MEDS: dexameTHASONE 4 MG/ML 1ML VIAL (J1100 PER 1MG) IV SCH (08:20)
[2021-03-25] MEDS ORDERED: REMDESIVIR 200 MG in NS 250 ML IV ONE (09:00)
[2021-03-25] MEDS ORDERED: SODIUM CHLORIDE 0.9% INJ 10 ML SYR IV ONE (11:00)
[2021-03-25 12:22] LABS: FOLATE 6.2 NG/ML (>5.4); VITAMIN B12 LEVEL > 2000 PG/ML (247-911)
[2021-03-25] MEDS: VANCOMYCIN HCL 750 MG, VIAL MATE ADAPTER 1 EACH in NS 250 ML IV SCH ×2 (15:10→22:04)
[2021-03-25] MEDS: ACETAMINOPHEN 500 MG TAB PO PRN ×2 (16:42→22:40)
--- NOTE | 2021-03-25 17:45 | IPNPDOC ---
Text Note Date of Service The patient was seen on 03/25/21. NOTE Subjective: Patient is a 31-year-old male who presented the emergency department after he was found unresponsive in his trailer. Patient needed a dose of Narcan in the emergency department to wake up. Patient has been having some pain in his ribs but he says this is secondary to him leaning up against the table in his trailer. Patient had an acute event overnight where he was hypotensive requiring fluid boluses. Patient is already on broad-spectrum antibiotics. Patient did meet sepsis criteria at that time and was bolused at that time. Patient is feeling better today but is still kind of sleepy. Review of systems: General: Patient denies fevers HEENT: Patient denies headaches Cardiovascular: Patient denies chest pain Respiratory: Patient denies shortness of breath, cough GI: Patient denies abdominal pain, nausea, vomiting, diarrhea : Patient denies increased frequency or pain with urination Extremities: Patient denies swelling or pain in extremities Neurological: Patient denies numbness or tingling in legs Physical exam: Vitals: See below General: Alert and oriented male patient who was laying in bed when I walked in the room. Patient not appear to be in any acute distress. HEENT: Normocephalic, atraumatic, moist mucous membranes. Neck: No lymphadenopathy or thyromegaly Cardiac: Regular rate and rhythm, no murmurs, normal S1, normal S2 Pulm: Clear to auscultation bilaterally. No wheezes, rhonchi, rales Abd: Nondistended, nontender to palpation, normal bowel sounds Ext: No edema bilateral lower extremities Labs: See below Imaging: CT abdomen and pelvis performed without contrast on 03/25/2021 was reported to show borderline hepatomegaly and mild splenomegaly. Slight subcutaneous edema with mild left and minimal right pleural effusions and minimal peritoneal ascites which may reflect generalized anasarca. Bibasilar infiltrates with viral atelectatic change and prominent atelectasis or consolidation of the left lower lobe which may reflect pneumonia. Minimal nonspecific pancolitis. Assessment/plan: 31-year-old male who presented to the hospital after being found altered in his trailer admitted to drug use who was found to be in acute renal failure with hyponatremia was also found to be Covid positive. 1. Acute renal failure. Patient's creatinine was 3.7 initial labs. This continues to improve. Patient did receive a dose of IV Lasix which did help with his pulmonary edema. We will continue to monitor the patient's kidney function and push oral fluids. 2. Polysubstance use. Patient has not needed additional doses of Narcan. Continue to monitor the patient very carefully withdrawal symptoms or agitation. 3. Hyponatremia. This may be secondary to hypervolemic hyponatremia secondary to acute heart failure. Patient was given a dose of Lasix as above and we will continue to monitor. 4. COVID-19. Patient was currently hypoxic and was started on both remdesivir and dexamethasone. Patient is no longer hypoxic so remdesivir can be discontinued. 5. Pulmonary edema. This appears to improve on examination. Echocardiogram read is still pending. 6. Thrombocytopenia. May be secondary to the patient's drug use. Continue to monitor platelets. 7. SIRS criteria. Patient was tachycardic and hypotensive. Vancomycin and Zosyn have been started. Blood cultures are positive for gram-positive cocci in chains. Repeat blood cultures have been ordered. DVT Prophylaxis: Teds and sequentials Disposition: Pending clinical improvement VSDerek, I+O VSDerek I+O Laboratory Tests 03/24/21 19:16 03/25/21 02:27 03/25/21 06:36 Vital Signs Date Time Temp Pulse Resp B/P (MAP) Pulse Ox O2 Delivery O2 Flow Rate FiO2 03/25/21 16:00 96.5 88 20 102/63 (76) 99 Room Air 03/25/21 08:00 2.0 I&O- Last 24 Hours up to 6 AM 03/25/21 06:00 Intake Total 4480 ml Output Total 4400 ml Balance 80 ml DIANA ESCUDERO DO Mar 25, 2021 17:45
--- NOTE | 2021-03-25 18:12 | ECHO ---
ECHOCARDIOGRAM DATE OF PROCEDURE: 03/24/2021 Age: 31 Gender: Male Height: 72 inches Weight: 176 pounds Body Surface Area: 2.02 m2 PATIENT LOCATION: Inpatient, currently in the emergency room. REFERRING PROVIDEER: Sang Madden D.O. INDICATION: Heart failure (unspecified) MEASUREMENTS: 2D Measurements: RV - 3.6 cm LV - 4.2 cm Septum 1.0 cm Posterior wall 1.0 cm Aortic root 3.4 cm LA - 3.9 cm LVEF 55% Doppler Measurements: AV - 0.9 m/sec LVOT - 0.8 m/sec MV-E 98, A 70, EA ratio 1.4 Early mitral deceleration time 232 msec E prime medial 8.9 A prime medial 7.6 E prime lateral 13 Average E/E prime ratio 8.9/PCWP 13 mmHg PV - 0.71 m/sec Pulmonary artery acceleration time 100 msec PASP 37 mmHg IVC - 2.2 cm COMMENTS: Normal sinus rhythm without intraventricular conduction disturbance. M-mode and 2-dimensional cardiography was performed with pulse, continuous wave, color flow and tissue Doppler studies. Normal left ventricular size, wall thickness and wall motion. Normal left atrial size and Doppler assessment of left ventricular (LV) diastolic function and estimated mean left atrial pressure. Normal right heart chamber sizes and wall motion with Doppler sign of borderline to mild pulmonary hypertension. Inferior vena cava (IVC) size upper limits of normal with normal respiratory collapse against an elevated central venous pressure. Normal aortic dimensions. Three equal size aortic cusps of normal thickness and cusp separation. No functional valvular abnormality. Normal mitral valvular apparatus leaflet excursion with no posterior systolic buckling and only very mild physiologic insufficiency. Normal appearing tricuspid valve with only mild physiologic insufficiency. No apparent intracardiac mass or pericardial effusion.
[2021-03-25 19:35] LABS: BLOOD UREA NITROGEN 40 MG/DL (7-18); CALCIUM LEVEL 7.6 MG/DL (8.5-10.1); CARBON DIOXIDE LEVEL 23 MEQ/L (21-32); CHLORIDE LEVEL 106 MEQ/L (98-107); CREATININE FOR GFR 1.23 MG/DL (0.70-1.30); GLOMERULAR FILTRATION RATE > 60.0 (>60); GLUCOSE, FASTING 133 MG/DL (70-100); POTASSIUM SERUM 4.7 MEQ/L (3.5-5.1); SODIUM LEVEL 135 MEQ/L (136-145)
[2021-03-25] MEDS: BENZONATATE 100MG CAPSULE PO PRN (22:04)
[2021-03-26] VITALS: BP 90/50; O2SAT 97
[2021-03-26 01:26] VITALS: BP 100/52
[2021-03-26 04:00] VITALS: O2SAT 98
[2021-03-26 04:43] VITALS: BP 98/56
[2021-03-26] MEDS: PIPERACILLIN/TAZOBACTAM SOD 4.5 GM in D5W MINI-BAG PLUS 50 ML IV SCH (04:43)
[2021-03-26] MEDS: ACETAMINOPHEN 500 MG TAB PO PRN ×2 (04:43→15:39)
[2021-03-26] MEDS: VANCOMYCIN HCL 750 MG, VIAL MATE ADAPTER 1 EACH in NS 250 ML IV SCH ×2 (05:59→15:40)
[2021-03-26] MEDS: BENZONATATE 100MG CAPSULE PO PRN ×2 (06:59→15:39)
[2021-03-26 08:37] LABS: BASO % 0.2 % (0.0-1.0); EOS % 0.5 % (0.0-3.0); HEMATOCRIT 26.1 % (42.0-52.0); HEMOGLOBIN 9.3 g/dl (13.5-17.5); LYMPH # 1.1 10^3/uL (1.5-5.0); LYMPH % 16.8 % (24.0-44.0); MEAN CORPUSCULAR HEMOGLOBIN 29.3 pg (27.0-33.0); MEAN CORPUSCULAR HGB CONC 35.6 g/dl (32.0-36.5); MEAN CORPUSCULAR VOLUME 82.3 fl (80.0-96.0); MONO # 0.4 10^3/uL (0.0-0.8); NEUTROPHILS % 75.7 % (36.0-66.0); RED BLOOD COUNT 3.17 10^6/uL (4.30-6.10); WHITE BLOOD COUNT 6.5 10^3/uL (4.0-10.0)
[2021-03-26 08:52] LABS: PARTIAL THROMBOPLASTIN TIME 29.5 SECONDS (25.9-37.0)
[2021-03-26 09:00] LABS: ALBUMIN 1.4 GM/DL (3.2-5.2); ALT/SGPT 43 U/L (12-78); BILIRUBIN,DIRECT 0.4 MG/DL (0.0-0.2); BILIRUBIN,TOTAL 0.9 MG/DL (0.2-1.0); BLOOD UREA NITROGEN 33 MG/DL (7-18); CALCIUM LEVEL 7.1 MG/DL (8.5-10.1); CARBON DIOXIDE LEVEL 21 MEQ/L (21-32); CHLORIDE LEVEL 108 MEQ/L (98-107); CPK CREATINE PHOSPHOKINASE 24 U/L (39-308); CREATININE FOR GFR 1.01 MG/DL (0.70-1.30); FERRITIN 1233 NG/ML (26-388); GLOMERULAR FILTRATION RATE > 60.0 (>60); GLUCOSE, FASTING 117 MG/DL (70-100); LDH LACTATE DEHYDROGENASE 222 U/L (87-241); MAGNESIUM LEVEL 2.2 MG/DL (1.8-2.4); NT-PRO BNP 3392 PG/ML (<125); POTASSIUM SERUM 4.3 MEQ/L (3.5-5.1); SODIUM LEVEL 136 MEQ/L (136-145); TOTAL PROTEIN 5.1 GM/DL (6.4-8.2); TROPONIN I < 0.02 NG/ML (< 0.10)
[2021-03-26] MEDS ORDERED: REMDESIVIR 100 MG in NS 250 ML IV SCH (09:00)
[2021-03-26 09:28] VITALS: BP 111/59
[2021-03-26 09:29] LABS: PLATELET COUNT, AUTOMATED 92 10^3/uL (150-450)
[2021-03-26] MEDS: dexameTHASONE 4 MG/ML 1ML VIAL (J1100 PER 1MG) IV SCH (09:31)
[2021-03-26 09:32] LABS: INR 1.16; PROTHROMBIN TIME 15.2 SECONDS (12.7-14.5)
[2021-03-26] MEDS ORDERED: SODIUM CHLORIDE 0.9% INJ 10 ML SYR IV SCH (10:00)
--- NOTE | 2021-03-26 12:07 | IPNPDOC ---
Text Note Date of Service The patient was seen on 03/26/21. NOTE Subjective: Patient is a 31-year-old male presented the emergency department he found unresponsive in his trailer. Patient needed a dose of Narcan in the emergency department to wake up. Patient admits to using IV drugs as long while smoking methamphetamine. Patient was septic and required fluid boluses. Patient was also found to be hyponatremic. Patient is feeling better today but patient's blood cultures did come back positive for Staph aureus with sensitivities pending. Patient is asking if he could get up and take a shower today. Review of systems: General: Patient denies fevers HEENT: Patient denies headaches Cardiovascular: Patient denies chest pain Respiratory: Patient denies shortness of breath, cough GI: Patient denies abdominal pain, nausea, vomiting, diarrhea : Patient denies increased frequency or pain with urination Extremities: Patient denies swelling or pain in extremities Neurological: Patient denies numbness or tingling in legs Physical exam: Vitals: See below General: Alert oriented male patient was laying in bed not in the room. Patient did not appear to be in any acute distress. HEENT: Normocephalic, atraumatic, moist mucous membranes. Neck: No lymphadenopathy or thyromegaly Cardiac: Regular rate and rhythm, no murmurs, normal S1, normal S2 Pulm: Clear to auscultation bilaterally. No wheezes, rhonchi, rales Abd: Nondistended, nontender to palpation, normal bowel sounds Ext: No edema bilateral lower extremities Labs: See below Imaging: No new imaging is been performed Assessment/plan: 31-year-old male presented to the hospital 3 and found altered in his trailer who admitted to the IV and smoking drugs who was found to be in acute renal failure with hyponatremia. Patient was also found to be Covid positive. 1. Acute renal failure. Patient's creatinine was initially 3.7. This is since resolved. Patient did receive a dose of IV Lasix as patient had pulmonary edema seen on chest x-ray. We will continue to monitor the patient's kidney function at this time. Patient is off fluids and kidney function is normal. 2. Polysubstance abuse. Patient is more awake today. Patient again states that he was using IV drugs and smoking methamphetamine. 3. Staph aureus bacteremia. Sensitivities are pending. Due to the patient's IV drug use, there is concern for right-sided endocarditis. Patient will need to be hospitalized until we are able to rule out endocarditis. Transthoracic echocardiogram does not show any vegetations. Patient will most likely need CHARLENE early next week. Infectious disease consult will be placed on Sunday. Repeat blood cultures were ordered yesterday and are negative. Continue with IV vancomycin until sensitivities return. 4. Hyponatremia. May be secondary to hypervolemic hyponatremia secondary to possible acute heart failure. Dose of Lasix was given as above. Sodium is within the normal limits. We will continue to monitor. 5. COVID-19. Patient was hypoxic which was most likely secondary to drug overdose/pulmonary edema. Once the pulmonary edema has resolved and the patient's drug overdose has resolved. Patient is no longer requiring oxygen therapy. Dexamethasone and remdesivir have been discontinued at this time as I do not believe COVID-19 was the cause of the patient's hypoxia. Patient only has a mild cough but does not complain of any other symptoms. 6. Pulmonary edema, this appears to have resolved. Echocardiogram does not show any evidence of heart failure at this time. 7. Thrombocytopenia this is improving. We will continue to monitor. 8. SIRS criteria. Patient had a fever and was tachycardic and hypotensive. Patient was most likely septic due to Staph aureus bacteremia. Patient's vital signs have been stable at this time. Patient has been downgraded to the medical surgical floor. DVT Prophylaxis: Teds and sequentials Disposition: Pending clinical improvement VS,Sarahe, I+O VS, Rupertobone, I+O Laboratory Tests 03/25/21 18:27 03/26/21 07:45 Vital Signs Date Time Temp Pulse Resp B/P (MAP) Pulse Ox O2 Delivery O2 Flow Rate FiO2 03/26/21 09:28 96.4 78 20 111/59 (76) 94 Room Air 03/25/21 20:06 I&O- Last 24 Hours up to 6 AM 03/26/21 06:00 Intake Total 2035 ml Output Total 1400 ml Balance 635 ml DIANA ESCUDERO DO Mar 26, 2021 12:06
[2021-03-26 14:13] VITALS: BP 101/59
--- NOTE | 2021-03-26 18:40 | DS.PDOC ---
Discharge Summary General Date of Admission Mar 24, 2021 at 11:11 Date of Discharge 03/26/2021 Attending Physician: DIANA ESCUDERO DO Discharge Summary PROCEDURES PERFORMED DURING STAY: None. ADMITTING DIAGNOSES: 1. Acute renal failure. 2. Polysubstance use 3. Hyponatremia 4. COVID-19 5. Pulmonary edema 6. Thrombocytopenia 7. SIRS criteria DISCHARGE DIAGNOSES: 1. Acute renal failure, improved. 2. Polysubstance abuse 3. Staph aureus bacteremia, unknown at the time of AMA discharge whether this was methicillin sensitive or resistant 4. Hyponatremia 5. COVID-19 6. Pulmonary edema 7. Thrombocytopenia 8. Sepsis COMPLICATIONS/CHIEF COMPLAINT: Acute Renal Failure,Polysubstance Abuse. HISTORY OF PRESENT ILLNESS: Patient is a 31-year-old male who presented emergenc y department after he found unresponsive in his trailer. Patient needed a dose of Narcan in the emergency department prior to waking up. Patient admitted to smoking methamphetamine as well as using opiates IV. Patient states when I am speaking with him that he is feeling much better than he did when he initially came into the hospital. Patient admits to using drugs and not really eating or drinking much over the past few days. Patient denies having any pain at this time. Patient believes his legs do look a little puffier than usual. Patient denies any other symptoms at this time. HOSPITAL COURSE: Patient was admitted for pulmonary edema and drug overdose. Patient's pulmonary edema responded well to a dose of IV Lasix. Patient was found to be hypotensive with a fever on the first night of his hospitalization and met sepsis criteria. Patient received fluid boluses which did improve the patient's blood pressure. Patient had already been started on vancomycin and Zosyn at that time. Patient was diagnosed with COVID-19 on routine respiratory panel prior to being admitted in the hospital. Patient was initially hypoxic but this was thought to be secondary to the patient's pulmonary edema and drug overdose. Once the patient was diuresed, the patient was able to saturate well on room air. Patient was initially started on dexamethasone and remdesivir based on the COVID-19 hypoxia protocol however, once the patient became able to tolerate room air, dexamethasone and remdesivir were stopped today, 03/26/2021. Patient was found to have staph aureus bacteremia however, at that time of dictation we are unaware whether or not this is methicillin sensitive or methicillin-resistant. Patient does admit to using IV drugs. Patient's kidney function returned to normal and patient sodium level had improved and the patient vital signs were better however, due to the patient's bacteremia, the patient needed to stay in the hospital until endocarditis could be ruled out and for definitive treatment. Patient was explained this earlier in the day on 03/26/2021 and was agreeable at that time. I received a page from the nurse at 6:14 PM stating that the patient was going to leave AGAINST MEDICAL ADVICE and had a ride that was coming to pick him up. I went down to the floor to speak with the patient and explained to the patient that if he does not get the staph aureus bacteremia treated, and it is endocarditis which has not been ruled out yet because a CHARLENE has not been performed, this could lead to possibly permanent damage being done to his heart and . Staph aureus bacteremia will not get better without antibiotic treatment and I cannot send him home on oral antibiotics to treat this. Patient will need to stay for IV antibiotics and until we find out whether or not this is MRSA versus MSSA, patient will need to continue with IV vancomycin. If the patient does not continue with the IV antibiotics, there is a high likelihood that the patient will continue to get sicker and possibly if he does not seek treatment at that time. I stated to the patient that if he does start feeling sick again to please return to the emergency department in order to resume his treatment. Patient again stated that he was leaving his medical advice because he "cannot sleep and cannot do it anymore". Patient was on the phone with his mother when I walked into the room initially to speak with him and it appeared that his mother was trying to get him to stay in the hospital as well. Patient left the hospital on 03/26/2021 AGAINST MEDICAL ADVICE. AGAINST MEDICAL ADVICE form was filled out and was signed by the patient prior to him leaving. DISCHARGE MEDICATIONS: Please see below. ALLERGIES: Please see below. PHYSICAL EXAMINATION ON DISCHARGE: VITAL SIGNS: Please see below. General: Alert and oriented male patient who was laying in bed when I walked in the room. Patient did not appear to be in any acute distress. HEENT: Normocephalic, atraumatic, moist mucous membranes. Neck: No lymphadenopathy or thyromegaly Cardiac: Regular rate and rhythm, no murmurs, normal S1, normal S2 Pulm: Clear to auscultation bilaterally. No wheezes, rhonchi, rales Abd: Nondistended, nontender to palpation, normal bowel sounds Ext: No edema bilateral lower extremities LABORATORY DATA: Please see below. IMAGING: Chest x-ray performed on 03/24/2021 was reported to show cardiomegaly with vascular congestion and diffuse interstitial edema. Suspected left effu hallie alveolar infiltrate/atelectasis in the left lung base. CT abdomen and pelvis performed without contrast on 03/25/2021 was reported to show borderline hepatomegaly and mild splenomegaly. Slight subcutaneous edema with mild left and minimal right pleural effusions and minimal peritoneal ascites which may reflect generalized anasarca. Bibasilar infiltrates with viral atelectatic change and prominent atelectasis or consolidation of the left lower lobe which may reflect pneumonia. Minimal nonspecific pancolitis. PROGNOSIS: Poor if he does not seek treatment for staph aureus bacteremia ACTIVITY: As tolerated. DIET: Regular DISCHARGE PLAN: Discharge AGAINST MEDICAL ADVICE DISPOSITION: AMA DISCHARGE INSTRUCTIONS: 1. Follow-up with a primary care provider within 3 to 5 days of discharge. 2. Return to the emergency department if symptoms worsen. ITEMS TO FOLLOWUP ON ON OUTPATIENT: 1. The need for IV antibiotics. DISCHARGE CONDITION: Stable. TIME SPENT ON DISCHARGE: 40 minutes. Vital Signs/I&Os Vital Signs Date Time Temp Pulse Resp B/P (MAP) Pulse Ox O2 Delivery O2 Flow Rate FiO2 03/26/21 14:13 95.9 59 18 101/59 (73) 98 Room Air 03/25/21 20:06 I&O- Last 24 Hours up to 6 AM 03/26/21 06:00 Intake Total 2035 ml Output Total 1400 ml Balance 635 ml Laboratory Data Labs 24H Laboratory Tests 2 03/26/21 07:45: Immature Granulocyte % (Auto) 0.8, Neutrophils (%) (Auto) 75.7H, Lymphocytes (%) (Auto) 16.8L, Monocytes (%) (Auto) 6.0, Eosinophils (%) (Auto) 0.5, Basophils (%) (Auto) 0.2, Neutrophils # (Auto) 5.0, Lymphocytes # (Auto) 1.1L, Monocytes # (Auto) 0.4, Eosinophils # (Auto) 0.0, Basophils # (Auto) 0.0, Nucleated Red Blood Cells % (auto) 0.0, Immature Platelet Fraction 23.7H, Prothrombin Time 15.2H, Prothromb Time International Ratio 1.16, Activated Partial Thromboplast Time 29.5, Fibrinogen 208L, Anion Gap 7L, Glomerular Filtration Rate > 60.0, Calcium Level 7.1L, Magnesium Level 2.2, Ferritin 1233H, Total Bilirubin 0.9, Direct Bilirubin 0.4H, Aspartate Amino Transf (AST/SGOT) 56H, Alanine Aminotra nsferase (ALT/SGPT) 43, Alkaline Phosphatase 48, Lactate Dehydrogenase 222, Total Creatine Kinase 24#L, Troponin I < 0.02, DB-Uyt-I-Type Natriuretic Peptide 3392H, Total Protein 5.1L, Albumin 1.4L, Albumin/Globulin Ratio 0.4 03/26/21 14:37: Vancomycin Level Trough 14.3 CBC/BMP Laboratory Tests 03/26/21 07:45 Microbiology Microbiology 03/25/21 Blood Culture, Received Pending 03/25/21 Blood Culture, Received Pending 03/24/21 Blood Culture - Preliminary, Resulted Staphylococcus Aureus 03/24/21 Blood Culture - Preliminary, Resulted Staphylococcus Aureus 03/24/21 Urine Culture - Final, Complete Discharge Medications Unable to Obtain Active Prescriptions or Reported Meds Allergies Coded Allergies: No Known Allergies (Unverified , 03/24/21) DIANA ESCUDERO DO Mar 26, 2021 18:40
== END 2021-03-26 18:35 | disposition left against medical advice (07) | DRG 720 ==
LOC: M ED 06:43 → M ED INP 11:11 → ENRESERV 16:31 → M 4MAIN 17:58
PROVIDERS: ADMIT Family Medicine; ATTEND Family Medicine
PROC: XW033E5 Introduction of Remdesivir Anti-infective into Peripheral Vein, Percutaneous Approach, New Technology Group 5 (ICD-10-PCS; principal; 2021-03-25)
PROC: 3E0333Z Introduction of Anti-inflammatory into Peripheral Vein, Percutaneous Approach (ICD-10-PCS; 2021-03-25)
DX: A41.2 Sepsis due to unspecified staphylococcus (principal); U07.1 COVID-19; J81.1 Chronic pulmonary edema; N17.9 Acute kidney failure, unspecified; D69.6 Thrombocytopenia, unspecified; E87.1 Hypo-osmolality and hyponatremia; K72.90 Hepatic failure, unspecified without coma; F17.210 Nicotine dependence, cigarettes, uncomplicated; F15.10 Other stimulant abuse, uncomplicated; F11.10 Opioid abuse, uncomplicated; R09.02 Hypoxemia

== ENCOUNTER → 2021-12-09 | Outpatient (CLI) | payer OTHER ==
[~2021-12-09] MED LIST: ARIP1TAB10; BUPR150T12; FURO40TA2; MIRT1TAB15; SPIR50TA4
[2021-12-09 12:37] LABS: HEMATOCRIT 37.4 % (42.0-52.0); HEMOGLOBIN 12.3 g/dl (13.5-17.5); MEAN CORPUSCULAR HEMOGLOBIN 29.6 pg (27.0-33.0); MEAN CORPUSCULAR HGB CONC 32.9 g/dl (32.0-36.5); MEAN CORPUSCULAR VOLUME 89.9 fl (80.0-96.0); PLATELET COUNT, AUTOMATED 254 10^3/uL (150-450); RED BLOOD COUNT 4.16 10^6/uL (4.30-6.10); WHITE BLOOD COUNT 6.1 10^3/uL (4.0-10.0)
[2021-12-09 12:46] LABS: INR 0.88; PROTHROMBIN TIME 12.3 SECONDS (12.7-14.5)
[2021-12-09 13:12] LABS: ALBUMIN 4.3 GM/DL (3.2-5.2); ALT/SGPT 20 U/L (12-78); BILIRUBIN,TOTAL 0.3 MG/DL (0.2-1.0); BLOOD UREA NITROGEN 13 MG/DL (7-18); CALCIUM LEVEL 9.7 MG/DL (8.5-10.1); CARBON DIOXIDE LEVEL 34 MEQ/L (21-32); CHLORIDE LEVEL 101 MEQ/L (98-107); GLOMERULAR FILTRATION RATE > 60.0 (>60); GLUCOSE, FASTING 104 MG/DL (70-100); POTASSIUM SERUM 3.8 MEQ/L (3.5-5.1); SODIUM LEVEL 136 MEQ/L (136-145); TOTAL PROTEIN 7.9 GM/DL (6.4-8.2)
[2021-12-09 13:30] LABS: HEPATITIS B SURFACE ANTIBODY POSITIVE (POSITIVE)
[2021-12-09 14:08] LABS: HIV 1&2 SCREEN CENTAUR NEGATIVE (NEGATIVE)
== END ==
LOC: M LAB 11:07
PROVIDERS: ATTEND Nurse Practitioner Family
DX: B18.2 Chronic viral hepatitis C (principal)

== ENCOUNTER 2023-08-27 04:06 | Emergency (ER) | payer MEDICAID, OTHER, SELFPAY ==
[~2023-08-27] VITALS: Ht 182.9 cm; Wt 66.2 kg
[2023-08-27 08:07] LABS: BLOOD UREA NITROGEN 13 MG/DL (9-23); CALCIUM LEVEL 9.4 MG/DL (8.5-10.1); CARBON DIOXIDE LEVEL 30 MMOL/L (20-31); CHLORIDE LEVEL 102 MMOL/L (98-107); GLOMERULAR FILTRATION RATE > 60.0 (>60); GLUCOSE, FASTING 100 MG/DL (60-100); SODIUM LEVEL 138 MMOL/L (136-145)
[2023-08-27 08:18] LABS: HEMATOCRIT 41.9 % (42.0-52.0); HEMOGLOBIN 13.7 g/dl (13.5-17.5); MEAN CORPUSCULAR HEMOGLOBIN 30.2 pg (27.0-33.0); MEAN CORPUSCULAR VOLUME 92.3 fl (80.0-96.0); RED BLOOD COUNT 4.54 10^6/uL (4.30-6.10); WHITE BLOOD COUNT 6.6 10^3/uL (4.0-10.0)
[2023-08-27 08:19] LABS: BASO % 0.3 % (0.0-1.0); EOS % 2.6 % (0.0-3.0); LYMPH # 1.6 10^3/uL (1.5-5.0); MEAN CORPUSCULAR HGB CONC 32.7 g/dl (32.0-36.5); MONO % 7.1 % (2.0-8.0); NEUTROPHILS # 4.3 10^3/uL (1.5-8.5); NEUTROPHILS % 65.8 % (36.0-66.0); PLATELET COUNT, AUTOMATED 359 10^3/uL (150-450)
[2023-08-27 08:20] LABS: EOS # 0.2 10^3/uL (0.0-0.5); MONO # 0.5 10^3/uL (0.0-0.8)
[2023-08-27] MEDS: LIDOCAINE 2% MDV 20ML VIAL SC ONE (08:45)
[2023-08-27 09:09] LABS: ERYTHROCYTE SEDIMENTATION RATE 26 mm/hr (0-15)
[2023-08-27] MEDS: DALBAVANCIN 1,500 MG in D5W 250 ML IV ONE (11:18)
[2023-08-27 12:00] VITALS: BP 111/59; TEMP 98.1; O2SAT 99
== END 2023-08-27 12:36 | disposition left against medical advice (07) ==
LOC: EDBD 04:06 → M ED 04:06
DX: L03.115 Cellulitis of right lower limb (principal); B19.20 Unspecified viral hepatitis C without hepatic coma; F17.210 Nicotine dependence, cigarettes, uncomplicated; F19.20 Other psychoactive substance dependence, uncomplicated; F10.10 Alcohol abuse, uncomplicated; Z53.9 Procedure and treatment not carried out, unspecified reason
CPT/HCPCS: 73564; 76882; 80048; 85025; 85652; 86140; 87040; 96365; 96372; 99285; J0875